=== PATIENT | female | born 1960 | race Caucasian/White ===

== ENCOUNTER 2019-12-20 17:05 | Emergency (ER) | payer OTHER, SELFPAY ==
[2019-12-20 17:13] VITALS: PULSE 77; RESP 18; TEMP 36.9; O2SAT 95; BMI 30.2
--- NOTE | 2019-12-20 17:20 | W.ED.GENADLT ---
HPI - General Adult General: Chief complaint: Recheck/Abnormal Lab/Rx Stated complaint: covid Time Seen by Provider: 12/20/19 17:17 Source: patient Mode of arrival: ambulatory Limitations: no limitations History of Present Illness: HPI narrative: 59-year-old female who states she wants to be tested for COVID. She states she has had no symptoms better recently tested positive and is an ICU at [facility]. She states she needs a negative bed to be able to go back to her daily living. She denies any fever and denies any shortness of breath. She has no medical complaints at this time. Associated symptoms: Deny chest pain, dyspnea, headache(s), nausea, rash or vomiting Review of Systems Const: Denies: fever(s), chills, body aches or change in appetite Eyes: Denies: blurry vision or eye discomfort ENMT: Denies: throat pain or dental pain Card: Denies: chest pain Resp: Denies: dyspnea GI: Denies: abdominal pain, nausea, vomiting or diarrhea : Denies: dysuria Musc: Denies: neck pain or back pain Skin/Breast: Denies: rash Neuro: Denies: headache(s) Psych: Denies: depression Masood/Lymph: Denies: easy bruising All/Imm: Denies: urticaria Physical Exam Const: COMMON NORMALS: no acute distress, patient oriented x3 and healthy appearing HENMT: COMMON NORMALS: normocephalic and atraumatic HEAD & SCALP: normocephalic and atraumatic Eye: COMMON NORMALS: Equal, round and reactive pupils present and EOMs intact bilaterally PUPIL: Yes Equal, round and reactive pupils present Neck/C-Spine: COMMON NORMALS: full ROM and supple Chest: COMMONS NORMALS: normal inspection of the chest and normal palpation of entire chest wall Resp: COMMON NORMALS: normal respiratory effort, No retractions, No use of accessory muscles and clear to auscultation bilaterally AUSCULTATION: clear to auscultation bilaterally Cardio: COMMON NORMALS: regular rate, regular rhythm and No murmurs present (Cardio) RATE: regular rate RHYTHM: regular rhythm GI: COMMON NORMALS: Normal to inspection, nondistended, normoactive bowel sounds present, Soft to palpation, non-tender and no masses PALPATION: Yes Soft to palpation Extremity: COMMON NORMALS: normal to inspection and full ROM Neuro: COMMON NORMALS: patient oriented x3, moves all extremities and no focal motor deficits Psych: COMMON NORMALS: mental status grossly normal, Normal thought process present and cooperative THOUGHT PROCESS: Normal thought process present Skin: COMMON NORMALS: no rashes or lesions noted and no wounds GENERAL SKIN EXAM: no rashes or lesions noted Course Vital Signs: Vital signs: Vital Signs Temperature 98.5 F 12/20/19 17:13 Pulse Rate 77 12/20/19 17:13 Respiratory Rate 18 12/20/19 17:13 Pulse Oximetry 95 12/20/19 17:13 MDM - General Adult MDM Narrative: Medical decision making narrative: Patient presents here with COVID-19. Patient is well-appearing here and is not on any oxygen and has no fever or shortness of breath. Patient is stable for discharge. I informed her she needs to self quarantine for 2 weeks and is to return if she has any increasing shortness of breath. Patient understands and agrees to plan. Lab Data: Labs: Lab Results 12/20/19 Range/Units 17:40 SARS-CoV-2 Ag (Rap id) Positive H (Negative) Discharge Plan Discharge Patient Disposition: Home Clinical Impression: COVID-19 Condition: Stable Prescriptions: No Action Tylenol 325 mg Tablet 650 mg PO QID PRN (Reason: Pain) RF: 0 Discharge Orders: Discharge Order (Routine); Ordered 12/20/19 Ordered By: Luis M Echavarria Discharge Diet: Advance as tolerated Discharge Activity: Resume usual activity Patient Instructions: Viral Syndrome (ED) Coding Level of Care Code ED Plant Maintenance Mechanic for Wojciech Fwd Exam Comprehensive
[2019-12-20 18:18] LABS: SARS Covid-2 Antigen Positive (Negative)
[2019-12-20 18:36] VITALS: PULSE 70; RESP 18; O2SAT 97
== END 2019-12-20 18:38 | disposition home or self-care (01) ==
PROVIDERS: Emergency Provider Emergency Medicine
DX: U07.1 COVID-19 (principal)
CPT/HCPCS: 12345; 87426; 99281; 99282

== ENCOUNTER 2023-05-11 12:36 | Emergency (ER) | payer OTHER, MEDICAID, SELFPAY ==
[2023-05-11 12:43] VITALS: BP 164/66; PULSE 76; TEMP 36.9; O2SAT 94; BMI 28.3
[2023-05-11 13:18] VITALS: BP 142/75; PULSE 71; O2SAT 97
--- NOTE | 2023-05-11 13:42 | CTR_ITS ---
PROCEDURE INFORMATION: Exam: CT Abdomen And Pelvis With Contrast Exam date and time: 05/11/2023 4:20 PM Age: 63 years old Clinical indication: Patient HX: Back pain, blood in urine; Additional info: Jaundice TECHNIQUE: Imaging protocol: Computed tomography of the abdomen and pelvis with contrast. Radiation optimization: All CT scans at this facility use at least one of these dose optimization techniques: automated exposure control; mA and/or kV adjustment per patient size (includes targeted exams where dose is matched to clinical indication); or iterative reconstruction. Contrast material: OMNI 350; Contrast volume: 100 ml; Contrast route: INTRAVENOUS (IV); REPORTING DATA: Count of CT and Cardiac NM exams in prior 12 months: This patient has received 0 known CTs and 0 known cardiac nuclear medicine studies in the 12 months prior to the current study. COMPARISON: No relevant prior studies available. RADIATION DOSE METRICS: Total DLP (mGy-cm): 498.93 FINDINGS: Liver: No mass. Gallbladder and bile ducts: Intra and extrahepatic biliary ductal dilatation. Wall thickening/enhancement of the extrahepatic biliary ducts. Common duct measures up to 10 mm. No visible common duct stone. Cholelithiasis with gallbladder wall thickening. Pancreas: No mass or ductal dilation. Spleen: No splenomegaly. Adrenal glands: No mass. Kidneys and ureters: No stones or hydronephrosis. Stomach and bowel: No obstruction. Appendix: Normal appendix. Intraperitoneal space: No free air. No significant fluid collection. Vasculature: No abdominal aortic aneurysm. Lymph nodes: No enlarged lymph nodes. Urinary bladder: Incompletely distended. Reproductive: Unremarkable as visualized. Bones/joints: Degenerative changes without acute findings. Severe bilateral hip degenerative changes. Soft tissues: Unremarkable. CT/CT abdomen pelvis w con* [id number] IMPRESSION: Cholelithiasis with dilated intra and extrahepatic biliary ducts and inflammation of the biliary system. No choledocholithiasis or pancreatic mass identified by CT. Acute cholecystitis and/or cholangitis are primary differential considerations. MRCP recommended for further evaluation.
--- NOTE | 2023-05-11 13:46 | ED_ITS ---
HPI - Female Genitourinary 2 General: Chief complaint: Urogenital-Female Stated complaint: back pain, blood urine Time Seen by Provider: 05/11/23 13:31 Source: patient Mode of arrival: ambulatory Limitations: no limitations History of Present Illness: Patient presents here from her clinic she went to the clinic today having some slight back pain along with noticing change in color of her urine. She is noticed to be quite jaundiced there and sent here. She does have scleral icterus and jaundice who states that some mild back and abdominal pain for the last 2 days denies any vomiting she had some painful urination no history of any liver issues she states she is not a drinker. Associated symptoms: Reports abdominal pain; Deny headache(s) or nausea Review of Systems 2 Const: Denies: fever(s), chills, body aches or change in appetite ENMT: Denies: throat pain or dental pain Card: Denies: chest pain Resp: Denies: dyspnea GI: Reports: abdominal pain; Denies: nausea, vomiting or diarrhea Musc: Denies: neck pain or back pain Skin/Breast: Reports: changes in skin color and jaundice; Denies: rash Neuro: Denies: headache(s) Physical Exam 2 Const: COMMON NORMALS: no acute distress, patient oriented x3 and healthy appearing HENMT: COMMON NORMALS: normocephalic and atraumatic HEAD & SCALP: n ormocephalic and atraumatic Eye: OTHER: scleral icterus Neck/C-Spine: COMMON NORMALS: full ROM and supple Chest: COMMONS NORMALS: normal inspection of the chest Resp: COMMON NORMALS: normal respiratory effort Cardio: COMMON NORMALS: regular rate, regular rhythm and No murmurs present (Cardio) RATE: regular rate RHYTHM: regular rhythm Extremity: COMMON NORMALS: normal to inspection and full ROM Neuro: COMMON NORMALS: patient oriented x3, moves all extremities and no focal motor deficits Psych: COMMON NORMALS: mental status grossly normal, Normal thought process present and cooperative THOUGHT PROCESS: Normal thought process present Skin: COMMON NORMALS: no rashes or lesions noted and no wounds NARRATIVE SKIN EXAM: jaundiced GENERAL SKIN EXAM: no rashes or lesions noted Course 2 Vital Signs: Vital signs: Vital Signs Temperature 98.5 F 05/11/23 12:43 Pulse Rate 69 05/11/23 18:33 Respiratory Rate 18 05/11/23 19:05 Blood Pressure 162/73 05/11/23 18:33 Pulse Oximetry 94 05/11/23 18:33 Oxygen Delivery Me thod Room Air 05/11/23 12:43 MDM - Female Medical Decision Making Patient presents here with abdominal pain along with an elevated bilirubin CT's scan shows biliary ductal dilatation with likely cholecystitis and cholangitis she is not septic here did give her IV antibiotics I spoke to physician at [facility] and will transfer there for higher level of care for GI and ERCP. Lab Data I reviewed the patient's lab results. 05/11/23 13:45 05/11/23 13:45 Radiology Impressions Abdomen/Pelvis CT 05/11/23 13:42 IMPRESSION: Cholelithiasis with dilated intra and extrahepatic biliary ducts and inflammation of the biliary system. No choledocholithiasis or pancreatic mass identified by CT. Acute cholecystitis and/or cholangitis are primary differential considerations. MRCP recommended for further evaluation. Laboratory Results WBC 7.68 10^3/uL (3.29-11.43) 05/11/23 13:45 RBC 5.22 10^6/uL (3.85-5.65) 05/11/23 13:45 Hgb 14.90 g/dL (11.27-16.99) 05/11/23 13:45 Hct 45.1 % (36-47) 05/11/23 13:45 MCV 86.4 fl (85-98) 05/11/23 13:45 MCH 28.5 pg (27-33) 05/11/23 13:45 MCHC 33.0 g/dL (30-55) 05/11/23 13:45 RDW 13.0 % (12.1-15.1) 05/11/23 13:45 Plt Count 327 10^3/cmm (157-399) 05/11/23 13:45 MPV 10.9 fL (7.4-10.4) H 05/11/23 13:45 Neut % (Auto) 74.7 % 05/11/23 13:45 Lymph % (Auto) 15.4 % 05/11/23 13:45 [place] % (Auto) 7.2 % 05/11/23 13:45 Eos % (Auto) 1.4 % 05/11/23 13:45 Baso % (Auto) 0.9 % 05/11/23 13:45 Neut # (Auto) 5.74 10^3/uL (1.8-7.7) 05/11/23 13:45 Lymph # (Auto) 1.2 10^3/uL (0.8-4.8) 05/11/23 13:45 [place] # (Auto) 0.6 10^3/uL (0.2-0.9) 05/11/23 13:45 Eos # (Auto) 0.1 10^3/uL (0.0-0.8) 05/11/23 13:45 Baso # (Auto) 0.1 10^3/uL (0.0-0.1) 05/11/23 13:45 Nucleated RBC % (auto) 0 % 05/11/23 13:45 Nucleated RBCs # 0.0 /100WBC 05/11/23 13:45 PT 12.90 SECONDS (12.1-14.9) 05/11/23 13:45 INR 0.94 (0.8-1.2) 05/11/23 13:45 Sodium 140 mmol/L (136-145) 05/11/23 13:45 Potassium 3.9 mmol/L (3.5-5.1) 05/11/23 13:45 Chloride 103 mmol/L (98-107) 05/11/23 13:45 Carbon Dioxide 22 mmol/L (22-29) 05/11/23 13:45 Anion Gap 18.9 (5-19) 05/11/23 13:45 BUN 11 mg/dL (8-23) 05/11/23 13:45 Creatinine 0.6 mg/dL (0.5-0.9) 05/11/23 13:45 GFR Calculation 100.6 mL/min (90-130) 05/11/23 13:45 Glucose 103 mg/dL (65-115) 05/11/23 13:45 Calculated Osmolality 290 mOsm/kg (285-295) 05/11/23 13:45 Calcium 9.2 mg/dL (8.5-10.5) 05/11/23 13:45 Total Bilirubin 8.5 mg/dL (0.15-1.2) H* 05/11/23 13:45 AST 204 U/L (0-32) H 05/11/23 13:45 ALT 504 U/L (0-33) H 05/11/23 13:45 Alkaline Phosphatase 379 U/L (35-105) H 05/11/23 13:45 Total Protein 7.3 g/dL (6.6-8.7) 05/11/23 13:45 Albumin 3.9 g/dL (3.5-5.2) 05/11/23 13:45 Globulin 3.4 g/dL (1.3-4.6) 05/11/23 13:45 Lipase 33 U/L (13-60) 05/11/23 13:45 Urine Color Nancy (Yellow) 05/11/23 15:03 Urine Appearance Hazy (CLEAR) A 05/11/23 15:03 Urine pH 5 (5-7) 05/11/23 15:03 Ur Specific Eros 1.030 (1.005-1.030) 05/11/23 15:03 Urine Protein 3+ (Negative) H 05/11/23 15:03 Urine Glucose (UA) Norm (Normal) 05/11/23 15:03 Urine Ketones 1+ (Negative) H 05/11/23 15:03 Urine Blood 2+ (Negative) H 05/11/23 15:03 Urine Nitrate Negative (Negative) 05/11/23 15:03 Urine Bilirubin 3+ (Negative) H 05/11/23 15:03 Urine Urobilinogen 4+ mg/dL (Negative) H 05/11/23 15:03 Ur Leukocyte Esterase Trace (Negative) H 05/11/23 15:03 Urine RBC 0-4 /hpf (0-2) H 05/11/23 15:03 Urine WBC 40-55 /hpf (0-5) H 05/11/23 15:03 Ur Squamous Epith Cells 5-10 /hpf (0-5) H 05/11/23 15:03 Amorphous Sediment Not Reportable 05/11/23 15:03 Urine Bacteria 2+ /hpf (NONE) H 05/11/23 15:03 All radiology interpretation(s) finalized by discharge Discharge Plan Discharge Patient Disposition: Xfer Short-Term Hosp Clinical Impression: Choledocholithiasis Condition: Stable Prescriptions: No Action acetaminophen [Tylenol] 325 mg Tablet 650 mg PO QID PRN (Reason: Pain) Referrals: Vanda Fernandes MD [Primary Care Provider] - Coding Level of Care Code ED Alterations Tailor for Chg Shannon
[2023-05-11] MEDS: sodium chloride 0.9% 1,000 ML 999 ML IV (14:06)
[2023-05-11 14:12] LABS: Basophils # 0.1 10^3/uL (0.0-0.1); Basophils % 0.9 %; Eosinophils # 0.1 10^3/uL (0.0-0.8); Eosinophils % 1.4 %; Hematocrit 45.1 % (36-47); Lymphocytes # 1.2 10^3/uL (0.8-4.8); Lymphocytes % 15.4 %; Mean Corpuscular Hemoglobin 28.5 pg (27-33); Mean Corpuscular Volume 86.4 fl (85-98); Mean Platelet Volume 10.9 fL (7.4-10.4); Monocytes # 0.6 10^3/uL (0.2-0.9); Monocytes % 7.2 %; Neutrophils # 5.74 10^3/uL (1.8-7.7); Neutrophils % 74.7 %; Nucleated Red Blood Cells % 0 %; Platelet Count 327 10^3/cmm (157-399); Red Blood Count 5.22 10^6/uL (3.85-5.65); White Blood Count 7.68 10^3/uL (3.29-11.43)
[2023-05-11 14:35] LABS: Alanine Aminotransferase 504 U/L (0-33); Albumin Level 3.9 g/dL (3.5-5.2); Alkaline Phosphatase 379 U/L (35-105); Anion Gap 18.9 (5-19); Aspartate Amino Transferase 204 U/L (0-32); Blood Urea Nitrogen 11 mg/dL (8-23); Calcium 9.2 mg/dL (8.5-10.5); Carbon Dioxide 22 mmol/L (22-29); Chloride 103 mmol/L (98-107); Globulin 3.4 g/dL (1.3-4.6); Glomerular Filtration Rate 100.6 mL/min (90-130); Glucose 103 mg/dL (65-115); Lipase 33 U/L (13-60); Osmolality Calculated 290 mOsm/kg (285-295); Potassium 3.9 mmol/L (3.5-5.1); Sodium 140 mmol/L (136-145); Total Protein 7.3 g/dL (6.6-8.7)
[2023-05-11 14:38] LABS: INR 0.94 (0.8-1.2)
[2023-05-11 14:45] LABS: Total Bilirubin 8.5 mg/dL (0.15-1.2)
[2023-05-11 15:17] LABS: Urine Color Amber (Yellow)
[2023-05-11 15:18] LABS: Add Urine Microscopic? YES; Bilirubin Urine 3+ (Negative); Blood Urine 2+ (Negative); Glucose Urine UA Norm (Normal); Ketones Urine 1+ (Negative); Nitrate Urine Negative (Negative); Protein Urine 3+ (Negative); Urine Appearance Hazy (CLEAR); Urobilinogen Urine 4+ mg/dL (Negative); pH Urine 5 (5-7)
[2023-05-11 15:35] LABS: Bacteria Urine 2+ /hpf; Leukocyte Esterase Urine Trace (Negative); RBC Urine 0-4 /hpf (0-2); WBC Urine 40-55 /hpf (0-5)
[2023-05-11 15:36] LABS: Add Urine Culture? Yes
[2023-05-11] MEDS: iohexol 350 mg/mL 500 mL Btl (per mL) IV (16:29)
[2023-05-11] MEDS: piperacillin-tazobactam 3.375 GM in sodium chloride 0.9% (plus) 50 ML IV (17:39)
[2023-05-11 18:33] VITALS: BP 162/73; PULSE 69; O2SAT 94
[2023-05-11 19:05] VITALS: RESP 18
[2023-05-11] MEDS: HYDROmorphone 1 mg/mL INJ 1 mL IVP (19:05)
[2023-05-11 20:00] VITALS: RESP 18; O2SAT 90
[2023-05-11 20:53] VITALS: BP 157/76; PULSE 81; RESP 18; O2SAT 97
== END 2023-05-11 20:55 | disposition short-term general hospital (02) ==
PROVIDERS: Emergency Provider Emergency Medicine; PCP Family Medicine
DX: K80.70 Calculus of gallbladder and bile duct without cholecystitis without obstruction (principal)
CPT/HCPCS: 74177; 80053; 81001; 83690; 85025; 85610; 87086; 96365; 96375; 99285; J1170; J2543; J7030; Q9967

== ENCOUNTER → 2024-02-13 14:34 | Outpatient (BNVA) | payer MEDICAID, OTHER, SELFPAY | DX: K21.9 Gastro-esophageal reflux disease without esophagitis (principal) | CPT/HCPCS: 80053; 80061; 84439; 84443; 85025 ==

== ENCOUNTER 2024-02-14 13:12 | Outpatient (CLI) | payer MEDICAID, OTHER, SELFPAY ==
--- NOTE | 2024-02-14 13:17 | XR_ITS ---
WS: [email or web address] Exam: XR knee RT 3V* [id number] Date/Time of Exam: 02/14/2024 1:19 PM Reason For Exam: joint pain No fracture or dislocation. The joint compartments are preserved. No joint effusion. Mild spurring of the tibial spines. XR/XR knee RT 3V* [id number] IMPRESSION: 1. Minimal degenerative change. No fracture or joint effusion. Kellgren-Lawrenc e grade 1.
--- NOTE | 2024-02-14 13:17 | XR_ITS ---
WS: [email or web address] Exam: XR hip RT 2-3V wo/w pel* [id number] Date/Time of Exam: 02/14/2024 1:19 PM Reason For Exam: joint pain No fracture or dislocation. There is end-stage osteoarthritis of the RIGHT hip with qzmc-ax-htle miguel ángel culation. Subcortical cyst formation in the acetabulum and the femoral head. Normal soft tissues. IMPRESSION1. End-stage osteoarthritis of the RIGHT hip with [id number].
--- NOTE | 2024-02-14 13:17 | XR_ITS ---
WS: [email or web address] Exam: XR hip LT 2-3V wo/w pel* [id number] Date/Time of Exam: 02/14/2024 1:19 PM Reason For Exam: bilateral pain No fracture or dislocation. End-stage osteoarthritis with rdhj-el-[id number]. Extensive subcortical cyst fo rmation in the acetabulum and the femoral head. Normal soft tissues. XR/XR hip LT 2-3V wo/w pel* [id number] IMPRESSION: 1. End-stage osteoarthritis with dhvo-mn-txde.
--- NOTE | 2024-02-14 13:17 | XR_ITS ---
WS: [email or web address] Exam: XR knee LT 3V* [id number] Date/Time of Exam: 02/14/2024 1:19 PM Reason For Exam: joint pain No fracture or dislocation. The joints are relatively well-maintained. No joint effusion. Normal soft tissues. Mild spurring of the tibial spines. XR/XR knee LT 3V* [id number] IMPRESSION: 1. Minimal DJD. Kellgren-Konrad grade 1.
== END 2024-02-14 13:13 | disposition home or self-care (01) ==
LOC: LAB 13:14
DX: M16.12 Unilateral primary osteoarthritis, left hip (principal); M71.352 Other bursal cyst, left hip; M16.11 Unilateral primary osteoarthritis, right hip; M71.351 Other bursal cyst, right hip
CPT/HCPCS: 73502; 73562

== ENCOUNTER → 2024-02-22 12:27 | Outpatient (BNVA) | payer OTHER, MEDICAID, SELFPAY | PROVIDERS: Visit Provider Nurse Practitioner | DX: M16.0 Bilateral primary osteoarthritis of hip (principal) | CPT/HCPCS: 73522; 99204 ==

== ENCOUNTER 2024-03-05 09:40 | Outpatient (RCR) | payer MEDICARE, OTHER, MEDICAID, SELFPAY | END 2024-03-14 23:59 | disposition home or self-care (01) | LOC: SPT 09:40 | PROVIDERS: Visit Provider Nurse Practitioner | DX: M25.551 Pain in right hip (principal); M25.552 Pain in left hip | CPT/HCPCS: 97110; 97161 ==

== ENCOUNTER 2024-03-15 06:00 | Outpatient (RCR) | payer MEDICARE, OTHER, MEDICAID, SELFPAY | END 2024-04-13 23:59 | disposition home or self-care (01) | LOC: SPT 06:00 | PROVIDERS: Visit Provider Nurse Practitioner | DX: M25.551 Pain in right hip (principal); M25.552 Pain in left hip | CPT/HCPCS: 97110 ==

== ENCOUNTER 2024-03-19 09:30 | Outpatient (CLI) | payer MEDICARE, OTHER, MEDICAID, SELFPAY ==
--- NOTE | 2024-03-19 09:30 | MR_ITS ---
WS: [id number] MRI LEFT HIP WITHOUT CONTRAST. COMPARISON: Radiograph 02/22/2024 Multiplanar, multisequence imaging is performed without contrast. Severe degenerative changes noted at the LEFT hip joint. There is obliteration of the hip joint with bone upon bone and remodeling of the femoral head. Numerous subchondral cystic changes are noted on b oth sides of the joint space. Synovial thickening and a small joint effusion are present. Labrum is i ndistinct. Study was terminated early due to patient's severe pain. Additional similar, but not as advanced changes, at the RIGHT femoral head and acetabulum. Edema with RIGHT hip and small joint effusion. There is edema and subchondral cystic changes developing on both sides of the joint. There is bone upon bone involving the femoral head upon the lateral acetabulum. Slight lateral subluxation of the femoral head. Urinary bladder is negative. Uterus is present in the midline. Heterogeneity within the uterus may be due to fibroids. MR/MR hip LT wo con* [id number] IMPRESSION: 1. Severe osteoarthritis at the LEFT hip joint. Obliteration of the joint spac e with remodeling of the femoral head and subchondral cystic changes. 2. Mild synovial thickening at the LEFT hip. 3. Similar but not as advanced osteoarthritic changes involving the RIGHT hip joint.
== END 2024-03-19 09:33 | disposition home or self-care (01) ==
PROVIDERS: Visit Provider Nurse Practitioner
DX: M16.0 Bilateral primary osteoarthritis of hip (principal)
CPT/HCPCS: 73721

== ENCOUNTER → 2024-04-01 10:00 | Outpatient (BNVA) | payer MEDICARE, OTHER, MEDICAID, SELFPAY | PROVIDERS: Visit Provider Nurse Practitioner | DX: M16.0 Bilateral primary osteoarthritis of hip (principal) | CPT/HCPCS: 99213 ==

== ENCOUNTER 2024-04-14 06:00 | Outpatient (RCR) | payer MEDICARE, OTHER, SELFPAY | END 2024-05-08 23:59 | disposition home or self-care (01) | LOC: SPT 06:00 | PROVIDERS: Visit Provider Nurse Practitioner | DX: M25.551 Pain in right hip (principal); M25.552 Pain in left hip | CPT/HCPCS: 97110 ==

== ENCOUNTER → 2024-05-20 10:52 | Outpatient (BNVA) | payer OTHER, SELFPAY | DX: I10 Essential (primary) hypertension (principal) | CPT/HCPCS: 80053 ==

== ENCOUNTER → 2024-07-01 14:14 | Outpatient (BNVA) | payer MEDICARE, MEDICAID, SELFPAY | PROVIDERS: Visit Provider Nurse Practitioner | DX: M16.0 Bilateral primary osteoarthritis of hip (principal); M85.60 Other cyst of bone, unspecified site; M54.16 Radiculopathy, lumbar region | CPT/HCPCS: 73502; 99214 ==

== ENCOUNTER 2024-07-16 11:06 | Outpatient (CLI) | payer MEDICARE, MEDICAID, SELFPAY ==
[2024-07-16 11:29] LABS: Basophils # 0.1 10^3/uL (0.0-0.1); Basophils % 0.8 %; Eosinophils # 0.1 10^3/uL (0.0-0.8); Eosinophils % 1.4 %; Hematocrit 43.9 % (36-47); Lymphocytes # 1.4 10^3/uL (0.8-4.8); Lymphocytes % 18.8 %; Mean Corpuscular HGB Conc 33.5 g/dL (30-55); Mean Corpuscular Hemoglobin 28.4 pg (27-33); Mean Corpuscular Volume 84.9 fl (85-98); Mean Platelet Volume 9.5 fL (7.4-10.4); Monocytes # 0.5 10^3/uL (0.2-0.9); Monocytes % 6.7 %; Neutrophils # 5.15 10^3/uL (1.8-7.7); Neutrophils % 71.7 %; Nucleated Red Blood Cells % 0 %; Platelet Count 397 10^3/cmm (157-399); Red Blood Count 5.17 10^6/uL (3.85-5.65); Red Cell Distribution Width 12.3 % (12.1-15.1); White Blood Count 7.18 10^3/uL (3.29-11.43)
[2024-07-16 11:31] LABS: Bilirubin Urine Negative (Negative); Blood Urine Trace (Negative); Glucose Urine UA Negative (Normal); Ketones Urine Trace (Negative); Leukocyte Esterase Urine 1+ (Negative); Nitrate Urine Negative (Negative); Protein Urine Trace (Negative); Specific Gravity, Urine 1.026 (1.005-1.030); Urine Appearance Clear (CLEAR); Urine Color Yellow (Yellow)
[2024-07-16 11:38] LABS: Add Urine Microscopic? YES; Bacteria Urine TRACE /hpf; Hyaline Casts Urine 0-4 /lpf; UA Manual Slide Review YES; UA Slide Review UA Slide Review Perf; WBC Urine 0-4 /hpf (0-5)
[2024-07-16 11:48] LABS: Alanine Aminotransferase 14 U/L (0-33); Alkaline Phosphatase 148 U/L (35-105); Aspartate Amino Transferase 15 U/L (0-32); Blood Urea Nitrogen 18 mg/dL (8-23); Calcium 8.7 mg/dL (8.5-10.5); Carbon Dioxide 25 mmol/L (22-29); Chloride 105 mmol/L (98-107); Globulin 2.8 g/dL (1.3-4.6); Glomerular Filtration Rate 100.3 mL/min (90-130); Glucose 106 mg/dL (65-115); Osmolality Calculated 290 mOsm/kg (285-295); Sodium 139 mmol/L (136-145); Total Bilirubin 0.9 mg/dL (0.15-1.2); Total Protein 6.8 g/dL (6.6-8.7)
== END 2024-07-16 11:07 | disposition home or self-care (01) ==
PROVIDERS: Visit Provider Nurse Practitioner
DX: M16.0 Bilateral primary osteoarthritis of hip (principal)
CPT/HCPCS: 36415; 80053; 81001; 85025

== ENCOUNTER → 2024-07-19 10:51 | Outpatient (BNVA) | payer MEDICARE, MEDICAID, SELFPAY | PROVIDERS: Visit Provider Family Medicine | DX: Z01.818 Encounter for other preprocedural examination (principal) | CPT/HCPCS: 81003; 93005 ==

== ENCOUNTER 2024-07-30 10:29 | Day surgery (SDC) | payer MEDICARE, SELFPAY ==
[2024-07-30 10:34] VITALS: BP 177/78; PULSE 69; RESP 16; TEMP 37.3; O2SAT 97; BMI 31.8
[2024-07-30] MEDS: sodium chloride 0.9% 1,000 ML 30 ML IV (10:48)
[2024-07-30] MEDS: acetaminophen 1,000 MG/100 ML PIGGYBACK 400 MG IV (10:52)
[2024-07-30] MEDS: gabapentin 300 mg Capsule PO (10:54)
[2024-07-30] MEDS: CELEcoxib 200 mg Capsule 400 MG PO (10:54)
--- NOTE | 2024-07-30 12:53 | SUR.PREOP ---
1230 Dr. Lester here and examined patient with c/o of left sided tooth pain, will cancel sx due to this tooth abcess. Nancy Ramsey,RN ELECTRIC VEHICLE ELECTRICIAN here to examine patient with Daughter Perry in room and when tooth examined and pressure placed on tooth, a large amt. of pus noted. Agreed per pt and daughter that pt needs to see a dentist alba and prescription sent to pharmacy for an antibiotic per Nancy. IV d/c ed and instructions given for f/u appt and verbalized understanding to take Diclofenac twice a day for pain.
== END 2024-07-30 12:50 | disposition home or self-care (01) ==
PROVIDERS: Visit Provider Specialist
PROC: (CPT 27130; principal; 2024-07-30 12:25)
DX: M16.0 Bilateral primary osteoarthritis of hip (principal); Z53.09 Procedure and treatment not carried out because of other contraindication; I10 Essential (primary) hypertension; K21.9 Gastro-esophageal reflux disease without esophagitis; Z79.899 Other long term (current) drug therapy; M85.60 Other cyst of bone, unspecified site; M54.16 Radiculopathy, lumbar region
CPT/HCPCS: 27130; J0131; J7030; J9999

== ENCOUNTER → 2024-08-19 08:27 | Outpatient (BNVA) | payer MEDICARE, SELFPAY | PROVIDERS: Visit Provider Nurse Practitioner | DX: M16.0 Bilateral primary osteoarthritis of hip (principal); M54.16 Radiculopathy, lumbar region; M85.60 Other cyst of bone, unspecified site | CPT/HCPCS: 99213 ==

== ENCOUNTER → 2024-10-11 10:05 | Outpatient (BNVA) | payer MEDICARE, MEDICAID, SELFPAY | PROVIDERS: Visit Provider Nurse Practitioner | DX: Z01.818 Encounter for other preprocedural examination (principal); M16.12 Unilateral primary osteoarthritis, left hip; M85.60 Other cyst of bone, unspecified site; M54.16 Radiculopathy, lumbar region | CPT/HCPCS: 36415; 80053; 81001; 85025; 99214 ==

== ENCOUNTER 2024-10-21 15:22 | Observation (INO) | payer MEDICARE, MEDICAID, SELFPAY ==
[2024-10-21] VITALS (20 sets, daily range): BP systolic 80–169; BP diastolic 46–94; PULSE 51–77; RESP 15–19; TEMP 36.2–36.8; O2SAT 92–99; BMI 33.3
--- NOTE | 2024-10-21 10:53 | W.PM.OPSUD ---
Surgery/Procedure H&P Update DATE OF PROCEDURE: October 21, 2024 DATE H&P PERFORMED: 10/11/24 H&P UPDATE INFORMATION: I have reviewed H&P completed within last 30 days, I have examined patient prior to procedure, No changes to prior documentation, H&P is in [facility] EMR on date indicated and Risks and benefits of the procedure reviewed PLANNED PROCEDURE: Operation Date: 10/21/24 13:00 Proposed Procedures p LEFT Total Hip Arthroplasty(Left) - Hayley Lester MD Related Problem List Diagnoses (1) Osteoarthritis of left hip: Qualifiers: Osteoarthritis type: primary Qualified Code(s): M16.12 - Unilateral primary osteoarthritis, left hip
--- NOTE | 2024-10-21 10:56 | ANES.PREANE2 ---
Pre-Anesthetic Assessment Height/Weight: Height 1.6 m Temp Pulse Resp BP Pulse Ox O2 Del Method 97.5 F L 60 18 150/83 92 Room Air 10/21/24 10:42 10/21/24 10:42 10/21/24 10:42 10/21/24 10:42 10/21/24 10:42 10/21/24 10:42 Operation Date: 10/21/24 13:00 Proposed Procedures p LEFT Total Hip Arthroplasty(Left) - Hayley Lester MD Familial anesthetic complications: None Was Beta Cora taken within 24 hours: N/A Was Clonidine taken within 24 hours: N/A Last intake: Intake Last Liquid Date 10/20/24 Last Liquid Time 23:00 Last Solid Date 10/20/24 Last Solid Time 19:00 Social No alcohol and No tobacco Exam alert, oriented x 3, clear to auscultation bilaterally and regular rate & rhythm Airway Mallampati: Class II Dentition: chipped and other (multiple missing) CV/HEM Hypertension GI Gastroesophageal Reflux Disease Anesthetic Plan ASA status: 3 Anesthesia: Regional (specify below) (spinal) Risk of > 500 ml blood loss (7ml/kg in children): No Medications/Allergies Home Medications ?Medication ?Instructions ?Recorded ?Confirmed ?Last Taken ?Type polyethylene glycol 3350 17 17 g PO DAILY PRN constipation 02/13/24 10/18/24 07/29/24 Rx gram/dose oral powder #510 grams docusate sodium 50 mg capsule 50 mg PO DAILY #30 caps 05/20/24 10/18/24 07/29/24 Rx Blood pressure cuff #1 ea 06/10/24 10/10/24 Unknown Rx diclofenac sodium 75 mg 75 mg PO BID PRN pain #180 tabs 07/01/24 10/18/24 07/25/24 Rx tablet,delayed release standard walker #1 ea 07/01/24 10/11/24 Unknown Rx acetaminophen 500 mg tablet 1,000 mg (2 x 500 mg) PO Q6H PRN 07/19/24 10/18/24 10/18/24 Rx pain #30 tabs chlorhexidine gluconate 0.12 % 15 ml mucous membrane DAILY #118 mL 07/30/24 10/18/24 Unknown Rx mouthwash cetirizine 10 mg tablet 10 mg PO DAILY #30 tabs 08/13/24 10/18/2410/15/25 Rx home BP monitoring device #1 ea 09/03/24 10/10/24 Unknown Rx hydroxyzine HCl 25 mg tablet 25 mg PO BID PRN anxiety #60 tabs 09/03/24 10/18/24 10/20/24 Rx omeprazole 20 mg capsule,delayed 20 mg PO QAM #90 caps 09/03/24 10/18/24 10/15/24 Rx release fluoxetine 40 mg capsule 40 mg PO DAILY #90 caps 10/03/24 10/18/24 10/15/24 Rx pantoprazole 20 mg tablet,delayed 20 mg PO DAILY #30 tabs 10/03/24 10/18/24 10/15/24 Rx release lisinopril 30 mg tablet 30 mg PO DAILY #30 tabs 10/10/24 10/18/24 10/20/24 Rx nitrofurantoin 100 mg PO BID 7 days #14 caps 10/14/24 10/18/24 10/20/24 Rx monohydrate/macrocrystals 100 mg capsule (Macrobid) Allergies Allergy/AdvReac Type Severity Reaction Status Date / Time No Known Allergies Allergy Verified 10/11/24 09:09 [facility] Anesthesia Medical History (Updated 10/14/24 @ 08:21 by RUBIN Iniguez) Osteoarthritis of left hip Subchondral bone cyst Hypertension Degenerative joint disease Osteoarthritis, hip, bilateral Encounter to establish care Anxiety Joint pain Seasonal allergies GERD (gastroesophageal reflux disease) Family History Father No problems noted. Mother No problems noted. Social History Smoking and tobacco/nicotine status: former use of tobacco/nicotine Alcohol intake: never Substance/Drug Use: never
[2024-10-21 11:01] LABS: Bilirubin Urine Negative (Negative); Blood Urine 1+ (Negative); Glucose Urine UA Negative (Normal); Ketones Urine Negative (Negative); Leukocyte Esterase Urine 3+ (Negative); Nitrate Urine Negative (Negative); Protein Urine Negative (Negative); Specific Gravity, Urine 1.017 (1.005-1.030); Urine Appearance Clear (CLEAR); Urine Color Yellow (Yellow); Urobilinogen Urine 0.2 mg/dL (Negative); pH Urine 5.5 (5-7)
[2024-10-21 11:06] LABS: Add Urine Microscopic? YES; Bacteria Urine Trace /hpf; Hyaline Casts Urine 0-4 /lpf; WBC Urine 21-50 /hpf (0-5)
[2024-10-21 11:07] LABS: Add Urine Culture? Yes
[2024-10-21 11:52] LABS: Bilirubin Urine Negative (Negative); Blood Urine Trace (Negative); Glucose Urine UA Negative (Normal); Ketones Urine Negative (Negative); Leukocyte Esterase Urine Negative (Negative); Nitrate Urine Negative (Negative); Protein Urine Negative (Negative); Specific Gravity, Urine 1.017 (1.005-1.030); Urine Appearance Clear (CLEAR); Urine Color Yellow (Yellow); pH Urine 6.5 (5-7)
[2024-10-21 11:54] LABS: Add Urine Microscopic? YES; Bacteria Urine None Seen /hpf; Squamous Epithelial Cell Urine 0-5 /hpf (0-5); WBC Urine 0-5 /hpf (0-5)
[2024-10-21 11:55] LABS: Add Urine Culture? No
[2024-10-21] MEDS: acetaminophen 1,000 MG/100 ML PIGGYBACK 400 MG IV ×2 (12:11→20:05)
[2024-10-21] MEDS: gabapentin 300 mg Capsule PO (12:12)
[2024-10-21] MEDS: sodium chloride 0.9% 1,000 ML 30 ML IV (12:12)
[2024-10-21] MEDS: CELEcoxib 200 mg Capsule 400 MG PO (12:13)
--- NOTE | 2024-10-21 12:13 | P.HPUD_ITS ---
Surgery/Procedure H&P Update DATE OF PROCEDURE: October 21, 2024 DATE H&P PERFORMED: 10/11/24 H&P UPDATE INFORMATION: I have reviewed H&P completed within last 30 days, I have examined patient prior to procedure, Changes to prior documentation as noted here (Patient urine repeated with subsequent clean catheterization urine), H&P is in [facility] EMR on date indicated and Risks and benefits of the procedure reviewed PLANNED PROCEDURE: Operation Date: 10/21/24 13:00 Proposed Procedures p LEFT Total Hip Arthroplasty(Left) - Hayley Lester MD Related Problem List Diagnoses (1) Osteoarthritis of left hip: Qualifiers: Osteoarthritis type: primary Qualified Code(s): M16.12 - Unilateral primary osteoarthritis, left hip
[2024-10-21] MEDS: tranexamic acid 1,000 MG/100 ML PREMIX 600 MG IV ×2 (12:37→16:49)
[2024-10-21] MEDS: ceFAZolin 2,000 mg SDV 2000 MG IVP ×2 (12:40→20:05)
[2024-10-21] MEDS: BUPivacaine liposome 13.3 mg/mL SDV 20 mL 266 MG INFILTRATI (13:26)
[2024-10-21] MEDS: BUPivacaine 0.5% INJ 30 mL 20 ML INJECTION (13:30)
[2024-10-21] MEDS: ceFAZolin 1,000 mg SDV 1000 MG IRRIGATION (13:31)
[2024-10-21] MEDS: VANCOMYCIN ADD-Vantage 1,000 MG VIAL 1000 MG INTRA-ARTI (13:35)
--- NOTE | 2024-10-21 15:04 | XRR_ITS ---
PROCEDURE INFORMATION: Exam: XR Pelvis Exam date and time: 10/21/2024 3:18 PM Age: 64 years old Clinical indication: Prior surgery; Surgery date: Post-operative (0-2 days); Surgery type: Post op left total hip; Additional info: Left total hip arthroplasty, low ap pelvis TECHNIQUE: Imaging protocol: Radiologic exam of the pelvis. Views: 1 or 2 view. COMPARISON: CR XR hip RT 2-3V wo/w pel* [id number] 07/01/2024 2:17 PM FINDINGS: Bones/joints: Cortical irregularity in the lesser trochanter suggesting possible fracture at this site. Status post left total hip arthroplasty. Hardware is intact. Severe osteoarthritis of the right hip with superior displacement of the femoral head relative to the acetabulum is again noted. Soft tissues: Postop changes in the soft tissues of the left hip. XR/XR pelvis 1-2V* [id number] IMPRESSION: 1. Cortical irregularity in the left lesser trochanter suggesting nondisplaced fracture. 2. Hardware is intact. 3. Severe osteoarthritis ([id number] articulation) of the right hip joint with superior displacement of the femoral head relative to the acetabulum.
--- NOTE | 2024-10-21 15:04 | PM.OP ---
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 Very tight adductor with flattening of the femoral head, severe deformity, complete obliteration of the normal structure of the head and cartilage. Procedure done: Left total hip arthroplasty Left hip adductor release Implants: The Rolly total hip system with a size 54 mm by E alpha code Trident II Tritanium acetabular shell with an MDM liner size 42 mm inner diameter by E alpha code.? A size 4 Accolade II 127 degree neck angle hip stem with a size 28 mm x +0 mm femoral head and a sabianist MDM X3 insert size 28 mm x 42E Specimens removed/disposition: Femoral head, disposed of Pathology: None Surgeon: Hayley Lester MD Lens Grinder And Polisher: Nancy Ramsey, nurse practitioner, whose services were required for positioning, exposure, retraction, closure, and completion of the surgical procedure. Anesthesia: Spinal (With MAC, ASA 3) Estimated blood loss (mL): 390 IV fluids (mL): 1,500 Urine output (mL): 150 Complications: None Findings: As noted in postoperative findings plus adductor tightness Brief History: This 64-year-old woman presented with complaints of severe bilateral hip pain. After discussion in the office, she wished to proceed with addressing the left hip first. She had previously been seen and had to have dental clearance prior to surgical intervention, and she has accomplished this. After discussion of risks and complications as well as benefits of surgery, the patient wished to proceed with left total hip arthroplasty. The patient was in agreement and wished to proceed. On the morning of surgery, she was again seen and prepared for the surgery. She was given opportunity to ask questions and have them answered. Procedure: The patient was brought to the operating theater.? She was transferred to the operating room table and subsequently administered a spinal anesthesia with MAC, ASA 3. This was well-tolerated.? Following administration of adequate anesthesia, the patient was placed in full lateral position and held in position with a pegboard.? The patient's left lower extremity was then prepped and draped in usual fashion utilizing DuraPrep.? It was draped free.? Following prepping and draping, a surgical pause was performed.? At the time of surgical pause, we identified the site and side of surgery.? We also identified the patient and preoperative surgical markings.?The patient's operative leg was compared to the opposite leg as a length comparison.? Patient had severe disease in the opposite hip as well, and leg lengths were of minimal importance with regard to the surgical procedure. Confirmation was made of equipment availability.? Additionally, the patient's preoperative IV antibiotic, Ancef 2 g, and TXA administration was confirmed as well.? X-rays were also reviewed as well as the patient's prior MRI. Following the surgical pause, an incision was made centering over the patient's greater trochanter continuing proximally and distally as necessary to allow access to the hip joint.? Dissection continued through skin and soft tissues using a scalpel, and hemostasis was obtained using electrocautery. The tensor fascia willis was identified and incised longitudinally.? Sciatic nerve was identified and protected throughout the surgical procedure.? A Charnley U retractor was placed after the tensor fascia willis had been incised longitudinally, and the sciatic nerve had been identified. Although range of motion was severely limited, the hip was internally rotated, and the piriformis muscle was identified and tagged. Piriformis muscle along with the remaining short external rotators were then incised from the posterior aspect of the hip joint.? These were retracted posteriorly.? The capsule was entered in a T-type fashion with the edges being tagged, and subsequently, the hip was dislocated. Dislocation was difficult secondary to the significant deformity. The labrum, which which was degenerative, torn, and with significant synovitis, was excised with further excision accomplished once the femoral head was removed.? Following hip dislocation, a femoral neck osteotomy was accomplished in the appropriate position.??Femoral head was noted to be very deformed with significant femoral head collapse. There was essentially no normal anatomy left to the femoral head. We then evaluated the acetabulum. The femur was retracted anteriorly.? Soft tissues were retracted, and the labrum was further removed. Anterior capsular release was required to be able to move the proximal aspect of the femur enough to prepare the femoral canal and also to place a femoral head to complete the hip arthroplasty. We then began reaming.? Once the femoral head was removed, there was noted to be significant loss of cartilage within the acetabulum. We reamed to a size 53 to allow for a size 54 acetabular shell. The size 54 mm acetabular shell was impacted into position without difficulty. It was noted to seat nicely.? The MDM liner was then impacted into position with care being taken to assure it seated appropriately. It was noted that the acetabulum matched the bony anatomy.? The cup was noted to seat nicely and had good fixation upon impact. Attention was directed to the proximal femur.? The proximal femur was lifted out of the wound and further anterior release was accomplished.? A canal finder was passed after the box chisel.? The reamer was used to lateralize.? We then began broaching. We broached sequentially to a size 4 Accolade II broach. Trial was accomplished with a +0 mm offset femoral head. The hip was stable at 90 degrees of flexion with 80 degrees of internal rotation and 30 degrees of adduction. It was also stable to external rotation and to toe hanging. The leg was not felt to be overlying. Therefore, trial components were removed after the hip was dislocated. The size 4 Accolade II 127 degree neck angle hip stem was impacted into position without difficulty and onto this was placed a +0 mm x 28 mm femoral head which had been assembled into the MDM insert size 48G.? With a +0 mm femoral head, we had the above-noted stability.? The stem was noted to seat nicely prior to placement of the femoral head.? The wound was copiously irrigated with 20 mL of Betadine and 500 mL of normal saline mixed together.? Subsequently, we suctioned this out and irrigated the wound copiously with lactated Ringer's.? At this time, with all components in appropriate position, the hip was reduced.? Following reduction of the prosthesis once again, we confirmed the stability of the hip.? Leg lengths were also felt to be satisfactory. Exparel was injected. Being satisfied with the prosthesis, attention was directed to closure.? Closure was accomplished with 0 Vicryl in the capsular tissues.? Piriformis was reattached with 0 Vicryl as well.? Tensor fascia willis was closed with 0 Vicryl in an interrupted fashion.? The subcutaneous tissues were closed with 2-0 Monocryl STRATAFIX.? Vancomycin powder and a Gelfoam thrombin mixture was placed into the wound as well.? The skin was closed with a running 3-0 Monocryl strata fix followed by Nataly Do and Halley. The patient was placed in an abduction pillow.? At this time, attention was directed to the patient's groin area. Plans were made for an adductor tenotomy. The area was prepped with Betadine. A 12 blade was used to enter the skin and perform an adductor tenotomy to allow for better range of motion and less stiffness. This was well-tolerated as well. Sterile dressing was placed consisting of 4 x 4's. Patient was placed in the abduction pillow and secured in place. Patient was transferred off the operative bed and was brought to the recovery room in a satisfactory condition. Related Problem List Diagnoses (1) Osteoarthritis of left hip: (2) Avascular necrosis of bone of left hip:
[2024-10-21] MEDS: fentaNYL 50 mcg/mL INJ 2mL IVP (15:38)
--- NOTE | 2024-10-21 15:50 | ANE.PACU2 ---
Inpatient post-anesthesia follow up: Airway intact: Yes Vital signs: Temperature 97.6 F Pulse Rate 81 Respiratory Rate 16 Blood Pressure 151/78 Pulse Oximetry 96 Oxygen Delivery Me thod Room Air Oxygen Flow Rate 6 Fraction of Inspir ed Oxygen Hydration adequate: Yes Nausea and vomiting: No Pain level: 1 Mental status: Baseline
[2024-10-21] MEDS: mupirocin oint 22 gm 1 APPLIC NASAL (16:45)
[2024-10-21] MEDS: chlorhexidine gluconate 0.12% Btl 473 mL 15 ML MUCOUS MEM (16:45)
[2024-10-21] MEDS: calcium carbonate 500 mg Chew Tablet 1000 MG PO (16:46)
[2024-10-21] MEDS: sennosides-docusate Tablet 2 TAB PO (16:46)
[2024-10-21] MEDS: oxyCODONE 5 mg IR Tab/Cap PO ×2 (16:46→21:55)
[2024-10-21] MEDS: iron polysaccharide complex 150 mg Capsule PO (16:47)
[2024-10-21] MEDS: nitrofurantoin SR (BID) 100 mg Capsule PO (16:47)
[2024-10-21] MEDS: chlorhexidine gluconate 0.12% Btl 473 mL 30 ML MUCOUS MEM ×2 (16:48→20:17)
[2024-10-21] MEDS: CELEcoxib 200 mg Capsule PO (21:55)
[2024-10-22 01:56] VITALS: RESP 18
[2024-10-22] MEDS: oxyCODONE 5 mg IR Tab/Cap PO ×2 (01:56→05:51)
[2024-10-22] MEDS: acetaminophen 1,000 MG/100 ML PIGGYBACK 400 MG IV ×2 (03:51→12:12)
[2024-10-22] MEDS: ceFAZolin 2,000 mg SDV 2000 MG IVP ×2 (03:51→12:09)
[2024-10-22 05:49] LABS: Basophils % 0.5 %; Eosinophils # 0.1 10^3/uL (0.0-0.8); Eosinophils % 1.1 %; Hematocrit 37.2 % (36-47); Lymphocytes # 1.1 10^3/uL (0.8-4.8); Lymphocytes % 12.6 %; Mean Corpuscular HGB Conc 33.1 g/dL (30-55); Mean Corpuscular Hemoglobin 28.3 pg (27-33); Mean Corpuscular Volume 85.7 fl (85-98); Mean Platelet Volume 10.2 fL (7.4-10.4); Monocytes # 0.7 10^3/uL (0.2-0.9); Monocytes % 7.7 %; Neutrophils # 6.59 10^3/uL (1.8-7.7); Neutrophils % 77.5 %; Nucleated Red Blood Cells % 0 %; Platelet Count 291 10^3/cmm (157-399); Red Blood Count 4.34 10^6/uL (3.85-5.65); Red Cell Distribution Width 13.2 % (12.1-15.1); White Blood Count 8.49 10^3/uL (3.29-11.43)
[2024-10-22 05:51] VITALS: RESP 16
[2024-10-22] MEDS: pantoprazole DR 40 mg Tablet PO ×2 (05:51→08:04)
[2024-10-22 06:08] LABS: Blood Urea Nitrogen 13 mg/dL (8-23); Calcium 8.1 mg/dL (8.5-10.5); Carbon Dioxide 23 mmol/L (22-29); Chloride 108 mmol/L (98-107); Creatinine Clr Calc Pharmacy 74.7982; Glucose 130 mg/dL (65-115); Osmolality Calculated 292 mOsm/kg (285-295); Sodium 140 mmol/L (136-145)
[2024-10-22] MEDS: lisinopril 10 mg Tablet 30 MG PO (08:04)
[2024-10-22] MEDS: cholecalciferol (vitamin D3) 1,000 unit Tablet 1000 UNIT PO (08:04)
[2024-10-22] MEDS: iron polysaccharide complex 150 mg Capsule PO (08:04)
[2024-10-22] MEDS: multivitamin therapeutic Tablet 1 TAB PO (08:05)
[2024-10-22] MEDS: nitrofurantoin SR (BID) 100 mg Capsule PO (08:05)
[2024-10-22] MEDS: mupirocin oint 22 gm 1 APPLIC NASAL (08:05)
[2024-10-22] MEDS: fluoxetine 20 mg Capsule 40 MG PO (08:05)
[2024-10-22] MEDS: sennosides-docusate Tablet 2 TAB PO (08:05)
[2024-10-22] MEDS: calcium carbonate 500 mg Chew Tablet 1000 MG PO (08:05)
[2024-10-22] MEDS: cetirizine 10 mg Tablet PO (08:05)
[2024-10-22] MEDS: docusate sodium 100 mg Capsule PO (08:05)
[2024-10-22] MEDS: aspirin 325 mg EC Tablet PO (08:05)
[2024-10-22] MEDS: chlorhexidine gluconate 0.12% Btl 473 mL 15 ML MUCOUS MEM ×2 (08:06→12:25)
[2024-10-22 08:19] VITALS: BP 151/78; PULSE 81; RESP 16; TEMP 36.4; O2SAT 96
--- NOTE | 2024-10-22 10:29 | PC.CHAP ---
Pastoral Care Encounter/Spiritual Assessment Type of Contact [] Declined partnership development manager visit [] Patient/Family/Request visit [] Outpatient visit [] Follow-up visit [] Physician referral [] Code/Alert [x] Routine visit [] Staff referral [] Actively dying [] Patient sleeping [] Family support [] [] Out of room [] Palliative care [] [] Receiving care in room [] Pre-surgical visit [] Trauma [] Long length of stay [] ICU visit [] Other: Relational/Emotional Strength [x] Patient feels connected with others/family/visitors/staff [] Distress [] Loneliness/isolation [] Abandonment Spirituality of Patient [x] Person of Tamara [] Attends Confucianism of their Tamara [x] Believes in Prayer [] Reads Bible or Yazidism materials [] There are Spiritual issues to be addressed Mental Health Program Director Interventions [x] Prayer [x] Active listening [x] Non-anxious presence [x] Spiritual/emotional support [] Crisis/trauma care [] Spiritual counseling [] Bereavement support [] Provided bereavement packet [] Provided Bible/devotional materials [] Provided toy/stuffed animal, coloring book to patient or family member [] Provided Communion [] Anointing/[place] [] Salvation [x] Completed spiritual assessment [] Other: Impact on Illness or Injury [] Angry [] Fearful [] Anxious [] Often cries [] Exhaustion [] Unable to work [] Unable to attend judaism [] Unable to walk/stand [] Unable to read [] Unable to drive [] Unable to eat/drink [] Unable to sleep [] Unable to be with family [] Patient intubated [] Other: Summary Time spent with patient 15 min
[2024-10-22] MEDS: CELEcoxib 200 mg Capsule PO (12:09)
--- NOTE | 2024-10-22 12:45 | P.DS_ITS ---
Discharge Providers Date of Admission: 10/21/24 15:22 Date of Discharge: October 23, 2024 Attending Provider at Admission: Hayley Lester MD Attending Provider at Discharge: Hayley Lester MD Primary Care Provider: Elizabeth Abel NP Diagnoses at Discharge Discharge Diagnosis (1) S/P total left hip arthroplasty: Status: Acute Permanent problem details: Date of procedure: October 21, 2024 Pre-op diagnosis: Left hip avascular necrosis with degenerative osteoarthritis Procedure done: Left total hip arthroplasty. Left hip adductor release. Implants: The Glendo total hip system with a size 54 mm by E alpha code Trident II Tritanium acetabular shell with an MDM liner size 42 mm inner diameter by E alpha code. A size 4 Accolade II 127 degree neck angle hip stem with a size 28 mm x +0 mm femoral head and a confucianism MDM X3 insert size 28 mm x 42E Surgeon: Hayley Lester MD (2) Osteoarthritis of left hip: Status: Acute Qualifiers: Osteoarthritis type: primary Qualified Code(s): M16.12 - Unilateral primary osteoarthritis, left hip (3) Avascular necrosis of bone of left hip: Status: Acute Reason for Visit Reason for Visit: M16.12 Brief History: This 64-year-old woman presented with complaints of severe bilateral hip pain. After discussion in the office, she wished to proceed with addressing the left hip first. She had previously been seen and had to have dental clearance prior to surgical intervention, and she has accomplished this. After discussion of risks and complications as well as benefits of surgery, the patient wished to proceed with left total hip arthroplasty. The patient was in agreement and wished to proceed. On the morning of surgery, she was again seen and prepared for the surgery. She was given opportunity to ask questions and have them answered. She underwent successful left total hip arthroplasty on Monday, October 21, 2024. Hospital Course Hospital Course This is a 64-year-old, female patient, who is status post day 1 left total hip arthroplasty. Patient has been doing well and states that she has not been taking her oral narcotic medications today, with her last dose being at 0200 this morning. She has been utilizing Tylenol only, with her pain well- controlled at rest. With increased activity, her pain does increase, per her report. She has been successfully working with physical therapy services, ambulating with the assistance of a walker. Her vital signs and postoperative labs are stable and she is found safe for discharge. At this time, we will plan to discharge her home, with home nursing and therapy services. Her daughter will also be staying with her intermittently, as she is a paid caregiver. We will plan to see her back here in the clinic in 2 weeks postoperatively. They will contact the office with any questions or concerns. Physical Exam Const: COMMON NORMALS: no acute distress, average body habitus, patient oriented x3, no limitations, alert and well nourished GENERAL APPEARANCE: cooperative; not anxious and not combative ORIENTATION/CONSCIOUSNESS: Yes awake, Yes oriented to person, Yes oriented to place and Yes oriented to time HENMT: COMMON NORMALS: normocephalic and atraumatic HEAD & SCALP: normocephalic and atraumatic Resp: COMMON NORMALS: normal respiratory effort Cardio: OTHER: Denies cough, shortness of breath or chest pressure/discomfort. Extremity: LEFT LOWER EXTREMITY: Yes hip joint Left hip: Yes inspection (Operative dressing dry and intact. Mild swelling. No bruising.), Yes palpation (Mild TTP to lateral hip/incision.), Yes ROM (Able to straight leg raise. Sitting comfortably with hip flexed to 90.) and Yes neurovascular exam (Sensation intact to light touch. Rapid cap refill.) and Yes lower leg Left lower leg: Yes special tests (No calf erythema, tenderness or abnormal swelling.) Left lower leg special tests: Natalie's sign: Negative Neuro: COMMON NORMALS: patient oriented x3 SENSORIUM/ORIENTATION: Yes alert, Yes oriented to person, Yes oriented to place and Yes oriented to time Psych: ATTITUDE: Yes engaged Skin: COMMON NORMALS: no rashes or lesions noted, turgor normal and no jaundice GENERAL SKIN EXAM: no rashes or lesions noted and turgor normal Urinary Catheter Management: Daniel: Cath Placed During This Visit: yes Reason for Continuing Indwelling Catheter: Perioperative Use in Selected Surgeries Urinary Catheter Date of Insertion: 10/21/24 Urinary Catheter Time of Insertion: 11:28 Discharge Data Studies Completed and Pending Completed Studies During Hospitalization Category Date Time Status XR pelvis 1-2V* [id number] Routine Exams 10/21/24 15:04 Completed Radiology Impressions Pelvis X-Ray 10/21/24 15:04 IMPRESSION: 1. Cortical irregularity in the left lesser trochanter suggesting nondisplaced fracture. 2. Hardware is intact. 3. Severe osteoarthritis ([id number] articulation) of the right hip joint with superior displacement of the femoral head relative to the acetabulum. Laboratory Results WBC 8.49 10^3/uL (3.29-11.43) 10/22/24 05:30 RBC 4.34 10^6/uL (3.85-5.65) 10/22/24 05:30 Hgb 12.30 g/dL (11.27-16.99) 10/22/24 05:30 Hct 37.2 % (36-47) 10/22/24 05:30 MCV 85.7 fl (85-98) 10/22/24 05:30 MCH 28.3 pg (27-33) 10/22/24 05:30 MCHC 33.1 g/dL (30-55) 10/22/24 05:30 RDW 13.2 % (12.1-15.1) 10/22/24 05:30 Plt Count 291 10^3/cmm (157-399) 10/22/24 05:30 MPV 10.2 fL (7.4-10.4) 10/22/24 05:30 Neut % (Auto) 77.5 % 10/22/24 05:30 Lymph % (Auto) 12.6 % 10/22/24 05:30 [place] % (Auto) 7.7 % 10/22/24 05:30 Eos % (Auto) 1.1 % 10/22/24 05:30 Baso % (Auto) 0.5 % 10/22/24 05:30 Neut # (Auto) 6.59 10^3/uL (1.8-7.7) 10/22/24 05:30 Lymph # (Auto) 1.1 10^3/uL (0.8-4.8) 10/22/24 05:30 [place] # (Auto) 0.7 10^3/uL (0.2-0.9) 10/22/24 05:30 Eos # (Auto) 0.1 10^3/uL (0.0-0.8) 10/22/24 05:30 Baso # (Auto) 0.0 10^3/uL (0.0-0.1) 10/22/24 05:30 Nucleated RBC % (auto) 0 % 10/22/24 05:30 Nucleated RBCs # 0.0 /100WBC 10/22/24 05:30 Sodium 140 mmol/L (136-145) 10/22/24 05:30 Potassium 4.0 mmol/L (3.5-5.1) 10/22/24 05:30 Chloride 108 mmol/L (98-107) H 10/22/24 05:30 Carbon Dioxide 23 mmol/L (22-29) 10/22/24 05:30 Anion Gap 13.0 (5-19) 10/22/24 05:30 BUN 13 mg/dL (8-23) 10/22/24 05:30 Creatinine 0.7 mg/dL (0.5-0.9) 10/22/24 05:30 GFR Calculation 84.0 mL/min (90-130) L 10/22/24 05:30 Glucose 130 mg/dL (65-115) H 10/22/24 05:30 Calculated Osmolality 292 mOsm/kg (285-295) 10/22/24 05:30 Calcium 8.1 mg/dL (8.5-10.5) L 10/22/24 05:30 Urine Color Yellow (Yellow) 10/21/24 11:25 Urine Appearance Clear (CLEAR) 10/21/24 11:25 Urine pH 6.5 (5-7) 10/21/24 11:25 Ur Specific [place] 1.017 (1.005-1.030) 10/21/24 11:25 Urine Protein Negative (Negative) 10/21/24 11:25 Urine Glucose (UA) Negative (Normal) 10/21/24 11:25 Urine Ketones Negative (Negative) 10/21/24 11:25 Urine Blood Trace (Negative) A 10/21/24 11:25 Urine Nitrate Negative (Negative) 10/21/24 11:25 Urine Bilirubin Negative (Negative) 10/21/24 11:25 Urine Urobilinogen 1.0 mg/dL (Negative) 10/21/24 11:25 Ur Leukocyte Esterase Negative (Negative) 10/21/24 11:25 Urine RBC 6-10 /hpf (0-2) 10/21/24 11:25 Urine WBC 0-5 /hpf (0-5) 10/21/24 11:25 Ur Squamous Epith Cells 0-5 /hpf (0-5) 10/21/24 11:25 Amorphous Sediment Not Reportable 10/21/24 11:25 Urine Bacteria None seen /hpf (NONE) 10/21/24 11:25 Hyaline Casts 0.40 /lpf 10/21/24 11:25 Vitals Last Vital Signs Temp 98.2 F 10/22/24 17:21 Pulse 84 10/22/24 17:21 Resp 16 10/22/24 17:21 BP 103/55 10/22/24 17:21 Pulse Ox 96 10/22/24 17:21 O2 Del Method Room Air 10/22/24 13:17 O2 Flow Rate 6 10/21/24 15:21 Discharge Plan Discharge Patient Disposition: Home Health Service Condition: Stable Prescriptions: New aspirin 325 mg Tablet,Delayed Release (Dr/Ec) 325 mg PO DAILY 30 Days Qty: 30 0RF oxycodone 5 mg Tablet 5 mg PO Q4H PRN (Reason: Moderate To Severe Pain) 7 Days Qty: 30 0RF Continued diclofenac sodium 75 mg tablet,delayed release (DR/EC) 75 mg PO BID PRN (Reason: pain) Qty: 180 0RF (DME) standard walker See Rx Instructions .Route .MEDSUPPLY Qty: 1 0RF Rx Instructions: As directed. Order 99 days (DME) Blood pressure cuff See Rx Instructions .Route .MEDSUPPLY Qty: 1 0RF Rx Instructions: As directed (DME) home BP monitoring device See Rx Instructions .Route .MEDSUPPLY Qty: 1 0RF Rx Instructions: As directed for HTN monitoring omeprazole 20 mg capsule,delayed release(DR/EC) 20 mg PO QAM Qty: 90 0RF hydroxyzine HCl 25 mg tablet 25 mg PO BID PRN (Reason: anxiety) Qty: 60 0RF lisinopril 30 mg tablet 30 mg PO DAILY Qty: 30 0RF chlorhexidine gluconate 0.12 % mouthwash 15 ml mucous membrane DAILY Qty: 118 1RF cetirizine 10 mg tablet 10 mg PO DAILY Qty: 30 2RF pantoprazole 20 mg tablet,delayed release (DR/EC) 20 mg PO DAILY Qty: 30 2RF fluoxetine 40 mg capsule 40 mg PO DAILY Qty: 90 0RF nitrofurantoin monohyd/m-cryst [Macrobid] 100 mg capsule 100 mg PO BID 7 Days Qty: 14 0RF Rx Instructions: must administer with a meal/food Changed acetaminophen 500 mg tablet 1,000 mg PO Q6H Qty: 30 0RF Discharge Orders: Discharge Order (Routine); Ordered 10/22/24 Ordered By: Hayley Lester Other Ambulatory Orders: DME: Walker (Order) Location: None Selected Ordered By: Hayley Lester Referrals: Hayley Lester MD [Physician, Orthopedics] - 11/04/24 11:00 am Discharge Diet: Advance as tolerated and Usual diet Discharge Activity: Limit activity as instructed, Use walker/crutches as instructed and As per PT/OT instructions Patient Instructions: Aspirin (By mouth), Oxycodone, Rapid Release (By mouth), Acute Wound Care (DC), Precautions after Total Joint Replacement Surgery (DC), Joint Replacement Surgery (DC), Post Anesthesia Care Activity Restrictions/Additional Instructions: Weight-bear as tolerated. Ambulation and strengthening per physical therapy. Posterior hip precautions as you are instructed at all times. You may shower, but do not soak the hip in water such as bath water, river water, pool, or [place]. Maintain dressing until you are seen in the office or it comes off on its own. Discharge Attestations Time Spent in Discharge Care*: greater than 30 min Quality Metrics Clinical Quality Measures [ No reported AMI, CVA or VTE this stay] Coding Level of Care Code Acute Code for Chg Fwd Diagnoses S/P total left hip arthroplasty Z96.642 Primary osteoarthritis of left hip M16.12 Osteoarthritis type: primary Avascular necrosis of bone of left hip M87.052
[2024-10-22 13:17] VITALS: BP 103/55; PULSE 84; RESP 16; TEMP 36.8; O2SAT 96
--- NOTE | 2024-10-22 15:43 | PC.NURSE ---
Urinary catheter was pulled at [address] Fung and Dr. Sanders.
[2024-10-22 17:21] VITALS: BP 103/55; PULSE 84; RESP 16; TEMP 36.8; O2SAT 96
--- NOTE | 2024-10-22 17:31 | PC.NURSE ---
Discussed discharge instructions, new medications, continued medications and changed medications with patient and daughter. Went over restrictions and no soaking in bath tub or any immersion in any water several times with patient and daughter. Both verbalized understanding.
== END 2024-10-22 17:35 | disposition home health service (06) ==
LOC: MEDSURG 15:22
PROVIDERS: Nurse Practitioner; Admitting Provider Specialist; Visit Provider Specialist
PROC: (CPT 27130; principal; 2024-10-21 12:40)
PROC: (CPT 27001; 2024-10-21 12:40)
DX: M16.12 Unilateral primary osteoarthritis, left hip (principal); M87.052 Idiopathic aseptic necrosis of left femur; I10 Essential (primary) hypertension; K21.9 Gastro-esophageal reflux disease without esophagitis; M54.16 Radiculopathy, lumbar region; Z79.899 Other long term (current) drug therapy; Z87.891 Personal history of nicotine dependence
CPT/HCPCS: 27001; 27130; 36415; 51702; 72170; 80048; 81001; 85025; 87086; 97110; 97116; 97161; 97167; 97530; A4216; C1776; G0378; J0131; J0666; J0690; J2250; J2371; J2704; J3010; J3370; J3490; J7030; J9999

== ENCOUNTER → 2024-11-04 10:55 | Outpatient (BNVA) | payer MEDICARE, MEDICAID, SELFPAY | PROVIDERS: Visit Provider Nurse Practitioner | DX: Z98.890 Other specified postprocedural states (principal); Z96.642 Presence of left artificial hip joint | CPT/HCPCS: 99024 ==

== ENCOUNTER → 2024-11-18 15:27 | Outpatient (BNVA) | payer MEDICARE, MEDICAID, SELFPAY | PROVIDERS: Visit Provider Nurse Practitioner | DX: Z96.642 Presence of left artificial hip joint (principal); M87.052 Idiopathic aseptic necrosis of left femur; M16.12 Unilateral primary osteoarthritis, left hip; M54.16 Radiculopathy, lumbar region | CPT/HCPCS: 73502; 99024 ==

== ENCOUNTER → 2024-12-30 14:18 | Outpatient (BNVA) | payer MEDICARE, MEDICAID, SELFPAY | PROVIDERS: Visit Provider Nurse Practitioner | DX: M16.11 Unilateral primary osteoarthritis, right hip (principal); M54.16 Radiculopathy, lumbar region; Z96.642 Presence of left artificial hip joint; Z98.890 Other specified postprocedural states | CPT/HCPCS: 73502; 99214 ==

== ENCOUNTER 2025-01-08 14:24 | Outpatient (CLI) | payer MEDICARE, MEDICAID, SELFPAY ==
--- NOTE | 2025-01-08 14:32 | MM_ITS ---
WS: [id number] BILATERAL 3D TOMOSYNTHESIS DIGITAL SCREENING MAMMOGRAPHY WITH CAD CLINICAL INFORMATION: SCREENING HISTORY: Screening mammogram. No current complaints. COMPARISON: Baseline TECHNIQUE: Bilateral CC and MLO views. FINDINGS: Scattered fibroglandular densities bilaterally. No suspicious focal mass, asymmetry, calcifications, or architectural distortion. No evidence of malignancy. Prominent lymph nodes in the axilla but with persistent fatty arian. MM/MM scr tomosynthesis [id number] IMPRESSION: DENSITY: There are scattered areas of fibroglandular density. BI-RADS: 2 - Benign. FOLLOW UP: 1 Year Follow-up Recommend return to annual screening mammography.
--- NOTE | 2025-01-08 14:32 | XR_ITS ---
WS: [id number] SCREENING DEXA SCAN [email or web address] CLINICAL INFORMATION: POSTMENOPAUSAL COMPARISON: None. FINDINGS: The L1-L4 bone mineral density measures 1.224 g/cm2. This corresponds to a T score score of 0.4 and Z score of 1.1. Right femoral neck bone mineral density measures 0.882. This corresponds to a T score -1.0 and Z score of -0.4. XR/XR DEXA axial skeleton* [id number] IMPRESSION: Normal bone mineralization lumbar spine. Osteopenia RIGHT femoral neck. Patient's FRAX calculated 10 year probability for major osteoporotic fracture i s 9.6% and osteoporotic hip fracture is 0.7%.
== END 2025-01-08 14:25 | disposition home or self-care (01) ==
LOC: RAD 14:26
PROVIDERS: PCP Family Medicine; Visit Provider Family Medicine
DX: Z12.31 Encounter for screening mammogram for malignant neoplasm of breast (principal); Z13.820 Encounter for screening for osteoporosis; Z78.0 Asymptomatic menopausal state; N64.89 Other specified disorders of breast; R92.323 Mammographic fibroglandular density, bilateral breasts; M85.851 Other specified disorders of bone density and structure, right thigh
CPT/HCPCS: 77063; 77067; 77080

== ENCOUNTER → 2025-02-03 11:21 | Outpatient (BNVA) | payer MEDICAID, SELFPAY | PROVIDERS: Visit Provider Nurse Practitioner | DX: M16.11 Unilateral primary osteoarthritis, right hip (principal); M87.051 Idiopathic aseptic necrosis of right femur; M85.60 Other cyst of bone, unspecified site; Z01.818 Encounter for other preprocedural examination | CPT/HCPCS: 36415; 73502; 80053; 81001; 85025; 99214 ==

== ENCOUNTER 2025-02-13 12:30 | Outpatient (CLI) | payer OTHER, MEDICAID, SELFPAY ==
[2025-02-13 12:58] LABS: Glucose Urine UA Negative (Normal); Nitrate Urine Negative (Negative); Specific Gravity, Urine 1.007 (1.005-1.030)
== END 2025-02-13 12:31 | disposition home or self-care (01) ==
PROVIDERS: PCP Family Medicine; Visit Provider Nurse Practitioner
DX: R30.0 Dysuria (principal)
CPT/HCPCS: 81001

== ENCOUNTER 2025-02-24 13:55 | Outpatient (CLI) | payer OTHER, MEDICAID, SELFPAY ==
--- NOTE | 2025-02-24 15:45 | CT_ITS ---
WS: [id number] CT RIGHT hip for GWENDOLYN procedure HISTORY: right hip pain. CHERYL planning Date: 02/24/2025 2:16 PM TECHNIQUE: Protocol for GWENDOLYN total hip replacement has been obtained. This includes axial imaging from the hip joint through the knee joint. DLP: [id number] FINDINGS: Advanced arthritis RIGHT hip with evidence of osteonecrosis. Flattening of the femoral head with associated sclerosis and subchondral cystic change. Sclerosis and subchondral cystic change in the underlying acetabulum. Prior postoperative changes LEFT CHERYL. Sigmoid diverticulosis. Vascular calcification. CT/CT hip RT GWENDOLYN [id number] IMPRESSION: CT imaging provided for GWENDOLYN robotic total hip.
== END 2025-02-24 13:56 | disposition home or self-care (01) ==
PROVIDERS: PCP Family Medicine; Visit Provider Nurse Practitioner
DX: M16.11 Unilateral primary osteoarthritis, right hip (principal); M87.051 Idiopathic aseptic necrosis of right femur; M87.9 Osteonecrosis, unspecified; M89.8X5 Other specified disorders of bone, thigh
CPT/HCPCS: 73700

== ENCOUNTER → 2025-02-25 13:28 | Outpatient (BNVA) | payer OTHER, MEDICAID, SELFPAY | PROVIDERS: PCP Family Medicine; Visit Provider Registered Nurse Neonatal Intensive Care | DX: R39.9 Unspecified symptoms and signs involving the genitourinary system (principal) | CPT/HCPCS: 81000 ==

== ENCOUNTER → 2025-03-17 12:11 | Outpatient (BNVA) | payer OTHER, MEDICAID, SELFPAY | PROVIDERS: PCP Family Medicine; Visit Provider Nurse Practitioner | DX: M87.051 Idiopathic aseptic necrosis of right femur (principal); M16.11 Unilateral primary osteoarthritis, right hip; M85.60 Other cyst of bone, unspecified site; M54.16 Radiculopathy, lumbar region | CPT/HCPCS: 99214 ==

== ENCOUNTER 2025-04-03 10:45 | Observation (INO) | payer MEDICARE, MEDICAID, SELFPAY ==
[2025-04-03] VITALS (17 sets, daily range): BP systolic 104–175; BP diastolic 56–92; PULSE 47–65; RESP 15–18; TEMP 36.2–37.2; O2SAT 91–99; BMI 34.0; BMI 35.8
[2025-04-03] MEDS: acetaminophen 1,000 MG/100 ML PIGGYBACK 400 MG IV ×2 (06:43→13:43)
--- NOTE | 2025-04-03 07:21 | ANES.PREANE2 ---
Pre-Anesthetic Assessment Height/Weight: Height 5 ft 3 in Weight 192 lb Temp Pulse Resp BP Pulse Ox O2 Del Method 98.9 F 64 18 175/92 96 Room Air 04/03/25 06:26 04/03/25 06:26 04/03/25 06:26 04/03/25 06:26 04/03/25 06:26 04/03/25 06:27 Preop Diagnosis: Hip arthritis Operation Date: 04/03/25 07:30 Proposed Procedures p RIGHT Total Hip Arthroplasty(Right) - Hayley Lester MD Was Beta Cora taken within 24 hours: Yes Was Clonidine taken within 24 hours: N/A Last intake: Intake Last Liquid Date 04/02/25 Last Liquid Time 22:30 Last Solid Date 04/02/25 Last Solid Time 22:30 Social No alcohol and No tobacco Exam alert, oriented x 3, clear to auscultation bilaterally and regular rate & rhythm Airway Submandibular: within normal limits Cervical ROM: within normal limits Mallampati: Class II Comments: Comments: Multiple missing teeth, denies any loose Anesthetic Plan ASA status: 3 Anesthesia: MAC and Regional (specify below) Other: No prior issues with anesthesia, patient had her other side done under spinal anesthesia and did well NPO since yesterday evening History of GERD, controlled with omeprazole Hypertension on lisinopril, amlodipine and metoprolol. BB taken today Denies any pulmonary issues Prior EKG showing sinus rhythm Labs reviewed and acceptable for procedure Plan for spinal anesthetic Medications/Allergies Home Medications ?Medication ?Instructions ?Recorded ?Confirmed ?Last Taken ?Type standard walker #1 ea 07/01/24 03/17/25 Unknown Rx shower chair #1 ea 10/31/24 03/17/25 Unknown Rx fluoxetine 40 mg capsule 40 mg PO DAILY #90 caps 11/18/24 04/03/25 04/03/25 Rx amlodipine 10 mg tablet 10 mg PO DAILY #90 tabs 11/25/24 04/03/25 04/03/25 Rx diclofenac sodium 75 mg 75 mg PO BID PRN pain #180 tabs 11/25/24 04/03/25 04/03/25 Rx tablet,delayed release lisinopril 40 mg tablet 40 mg PO DAILY #60 tabs 11/25/24 04/02/25 04/02/25 Rx cetirizine 10 mg tablet 10 mg PO DAILY #30 tabs 01/30/25 04/03/25 04/03/25 Rx hydroxyzine HCl 25 mg tablet 25 mg PO DAILY 04/02/25 04/03/25 04/03/25 History metoprolol succinate 25 mg 25 mg PO DAILY 04/02/25 04/03/25 04/03/25 History tablet,extended release 24 hr omeprazole 20 mg capsule,delayed 20 mg PO DAILY 04/02/25 04/03/25 04/03/25 History release Allergies Allergy/AdvReac Type Severity Reaction Status Date / Time No Known Allergies Allergy Verified 04/03/25 06:17 Current Medications Generic Name Dose Route Start Last Admin Trade Name Freq PRN Reason Stop Dose Admin Sodium Chloride 1,000 mls @ 30 mls/hr 04/03/25 06:15 04/03/25 06:43 Sodium Chloride 0.9% IV 04/04/25 06:14 30 mls/hr .Q24H PASCALE Administration PFSH Anesthesia Medical History Dysuria Avascular necrosis of bone of right hip Primary osteoarthritis of right hip Osteoarthritis of left hip Subchondral bone cyst Hypertension Degenerative joint disease Osteoarthritis, hip, bilateral Encounter to establish care Anxiety Joint pain Seasonal allergies GERD (gastroesophageal reflux disease) Surgical History S/P total left hip arthroplasty Date of procedure: October 21, 2024 Pre-op diagnosis: Left hip avascular necrosis with degenerative osteoarthritis Procedure done: Left total hip arthroplasty. Left hip adductor release. Implants: The [place] total hip system with a size 54 mm by E alpha code Trident II Tritanium acetabular shell with an MDM liner size 42 mm inner diameter by E alpha code. A size 4 Accolade II 127 degree neck angle hip stem with a size 28 mm x +0 mm femoral head and a pentecostal MDM X3 insert size 28 mm x 42E Surgeon: Hayley Lester MD Family History Father No problems noted. Mother No problems noted. Social History Smoking and tobacco/nicotine status: never used tobacco/nicotine Alcohol intake: never Substance/Drug Use: never
--- NOTE | 2025-04-03 07:29 | W.PM.OPSUD ---
Surgery/Procedure H&P Update DATE OF PROCEDURE: April 03, 2025 DATE H&P PERFORMED: 04/16/25 H&P UPDATE INFORMATION: I have reviewed H&P completed within last 30 days, I have examined patient prior to procedure, No changes to prior documentation, H&P is in [facility] EMR on date indicated and Risks and benefits of the procedure reviewed PREOP DIAGNOSIS: Right hip osteoarthritis PLANNED PROCEDURE: Operation Date: 04/03/25 07:30 Proposed Procedures p RIGHT Total Hip Arthroplasty(Right) - Hayley Lester MD Related Problem List Diagnoses 1. Primary osteoarthritis of left hip: Qualifiers: Osteoarthritis type: primary Qualified Code(s): M16.12 - Unilateral primary osteoarthritis, left hip 2. Avascular necrosis of bone of left hip:
[2025-04-03] MEDS: ceFAZolin 2,000 mg SDV 2000 MG IVP ×2 (07:45→14:31)
[2025-04-03] MEDS: tranexamic acid 1,000 mg/10mL SDV 1000 MG IV (07:50)
[2025-04-03] MEDS: ceFAZolin 1,000 mg SDV 1000 MG IRRIGATION (08:45)
[2025-04-03] MEDS: BUPivacaine 0.5% INJ 10 mL 20 ML INJECTION (08:50)
[2025-04-03] MEDS: BUPivacaine liposome 13.3 mg/mL SDV 20 mL 266 MG INJECTION (08:50)
--- NOTE | 2025-04-03 10:22 | PM.OP ---
Operative Report Date of procedure: April 03, 2025 Pre-op diagnosis: Avascular necrosis right hip with severe degenerative osteoarthritic change and femoral head collapse Post-op diagnosis: Avascular necrosis right hip with severe degenerative osteoarthritic change and femoral head collapse Post-op findings: Severe degenerative osteoarthritis and findings consistent with avascular necrosis. Flattening of the femoral head with complete obliteration of normal cartilage Procedure done: Right total hip arthroplasty Implants: The [place] total hip system with a size 52 mm by E alpha code Trident II Tritanium solidback acetabular shell with an MDM liner size 42 mm inner diameter by E alpha code.? A size 4 Accolade II 127 degree neck angle hip stem with a size 28 mm x +0 mm femoral head and a episcopalian MDM X3 insert size 28 mm x 42E Specimens removed/disposition: Femoral head, disposed of Pathology: None Surgeon: Hayley Lester MD Inside Sales Trainer: Nancy Ramsey, nurse practitioner, whose services were required for positioning, exposure, retraction, closure, and completion of the surgical procedure. Anesthesia: Spinal (With MAC, ASA 3) Estimated blood loss (mL): 550 IV fluids (mL): 1,500 Urine output (mL): 300 Complications: None Findings: Hip was stable at 90 degrees of flexion with 70 degrees of internal rotation and 20 degrees of adduction. Severe degenerative osteoarthritis with femoral head collapse. Condition: stable Disposition: PACU (Then to floor for postoperative rehabilitation and pain management) Brief History: This 65-year-old woman initially presented to the office with complaints of severe bilateral hip pain. On October 21, 2024, she underwent left total hip arthroplasty. Today, she presents for a right total hip arthroplasty. Risks and complications were explained to her in the office. Questions were answered and consents were signed. Patient wished to proceed with total hip arthroplasty. On the morning of surgery, she was given further opportunity to ask and have questions answered. Procedure: The patient was brought to the operating theater.? She was transferred to the operating room table and subsequently administered a spinal anesthesia with MAC, ASA 3. This was well-tolerated.? Following administration of adequate anesthesia, the patient was placed in full lateral position and held in position with a pegboard.? The patient's right lower extremity was then prepped and draped in usual fashion utilizing DuraPrep.? It was draped free.? Following prepping and draping, a surgical pause was performed.? At the time of surgical pause, we identified the site and side of surgery.? We also identified the patient and preoperative surgical markings.?The patient's operative leg was compared to the opposite leg as a length comparison.? Patient had a prior total hip arthroplasty on the left as noted above. Confirmation was made of equipment availability.? Additionally, the patient's preoperative IV antibiotic, Ancef 2 g, and TXA administration was confirmed as well.? X-rays were also reviewed as well as the patient's prior MRI. Following the surgical pause, an incision was made centering over the patient's greater trochanter continuing proximally and distally as necessary to allow access to the hip joint.? Dissection continued through skin and soft tissues using a scalpel, and hemostasis was obtained using electrocautery. The tensor fascia willis was identified and incised longitudinally.? Sciatic nerve was identified and protected throughout the surgical procedure.? A Charnley U retractor was placed after the tensor fascia willis had been incised longitudinally, and the sciatic nerve had been identified. Although range of motion was severely limited, the hip was internally rotated, and the piriformis muscle was identified and tagged. Piriformis muscle along with the remaining short external rotators were then incised from the posterior aspect of the hip joint.? These were retracted posteriorly.? The capsule was entered in a T-type fashion with the edges being tagged, and subsequently, the hip was dislocated. Dislocation was difficult secondary to the significant deformity. The labrum, which which was degenerative, torn, and with significant synovitis, was excised with further excision accomplished once the femoral head was removed.? Following hip dislocation, a femoral neck osteotomy was accomplished in the appropriate position.??Femoral head was noted to be very deformed with significant femoral head collapse. There was essentially no normal anatomy left to the femoral head. We then evaluated the acetabulum. The femur was retracted anteriorly.? Soft tissues were retracted, and the labrum was further removed. We then began reaming.? Once the femoral head was removed, there was noted to be significant loss of cartilage within the acetabulum. We reamed to a size 51 to allow for a size 52 acetabular shell. The size 52 mm acetabular shell was impacted into position without difficulty. It was noted to seat nicely.? The MDM liner was then impacted into position with care being taken to assure it seated appropriately. It was noted that the acetabulum matched the bony anatomy.? The cup was noted to seat nicely and had good fixation upon impact. Attention was directed to the proximal femur.? The proximal femur was lifted out of the wound and further anterior release was accomplished.? A canal finder was passed after the box chisel.? The reamer was used to lateralize.? We then began broaching. We broached sequentially to a size 4 Accolade II broach. Trial was accomplished with a +0 mm offset femoral head. The hip was stable at 90 degrees of flexion with 70 degrees of internal rotation and 20 degrees of adduction. It was also stable to external rotation and to toe hang. Therefore, trial components were removed after the hip was dislocated. The size 4 Accolade II 127 degree neck angle hip stem was impacted into position without difficulty and onto this was placed a +0 mm x 28 mm femoral head which had been assembled into the MDM insert size 42E.? With a +0 mm femoral head, we had the above-noted stability.? The stem was noted to seat nicely prior to placement of the femoral head.? The wound was copiously irrigated with 20 mL of Betadine and 500 mL of normal saline mixed together.? Subsequently, we suctioned this out and irrigated the wound copiously with lactated Ringer's.? At this time, with all components in appropriate position, the hip was reduced.? Following reduction of the prosthesis once again, we confirmed the stability of the hip.? Leg lengths were also felt to be satisfactory. Exparel was injected. Being satisfied with the prosthesis, attention was directed to closure.? Closure was accomplished with 0 Vicryl in the capsular tissues.? Piriformis was reattached with 0 Vicryl as well.? Tensor fascia willis was closed with 0 Vicryl in an interrupted fashion.? The subcutaneous tissues were closed with 2-0 Monocryl STRATAFIX.? Vancomycin powder and a Gelfoam thrombin mixture was placed into the wound as well.? The skin was closed with a running 3-0 Monocryl strata fix followed by Dermabond Prineo and OpSite. The patient was placed in an abduction pillow. Patient was transferred off the operative bed and was brought to the recovery room in a satisfactory condition. Related Problem List Diagnoses 1. Primary osteoarthritis of right hip: 2. Avascular necrosis of bone of right hip:
[2025-04-03] MEDS: fentaNYL 50 mcg/mL INJ 2mL IVP (10:45)
--- NOTE | 2025-04-03 10:48 | XRR_ITS ---
PROCEDURE INFORMATION: Exam: XR Pelvis Exam date and time: 04/03/2025 10:35 AM Age: 65 years old Clinical indication: Device placement; Prior surgery; Surgery date: Post-operative (0-2 days); Surgery type: Hip; Additional info: Post-op TECHNIQUE: Imaging protocol: Radiologic exam of the pelvis. Views: 1 or 2 view. COMPARISON: CR XR hip RT 2-3V wo/w pel* [id number] 02/03/2025 11:23 AM FINDINGS: Bones/joints: Total right hip replacement. Prosthesis appears in anatomical position. Soft tissues: Subcutaneous emphysema. XR/XR pelvis 1-2V* [id number] IMPRESSION: New total right hip replacement.
--- NOTE | 2025-04-03 11:02 | ANE.PACU2 ---
Inpatient post-anesthesia follow up: Airway intact: Yes Vital signs: Temperature 97.7 F Pulse Rate 47 Respiratory Rate 16 Blood Pressure 147/69 Pulse Oximetry 96 Oxygen Delivery Me thod Room Air Oxygen Flow Rate Fraction of Inspir ed Oxygen Hydration adequate: Yes Nausea and vomiting: No Pain level: 1 Mental status: Baseline
[2025-04-03] MEDS: tranexamic acid 1,000 MG/100 ML PREMIX 600 MG IV (13:44)
[2025-04-03] MEDS: oxyCODONE 5 mg IR Tab/Cap PO (14:33)
[2025-04-03] MEDS: sennosides-docusate Tablet 2 TAB PO (16:14)
[2025-04-03] MEDS: chlorhexidine gluconate 0.12% Btl 473 mL 30 ML MUCOUS MEM (16:15)
[2025-04-03] MEDS: mupirocin oint 22 gm 1 APPLIC NASAL (16:16)
[2025-04-03] MEDS: acetaminophen 1,000 MG/100 ML PIGGYBACK 100 MG IV (21:52)
[2025-04-04] VITALS: BP 147/67; PULSE 60; RESP 16; TEMP 37.2; O2SAT 92
[2025-04-04] MEDS: chlorhexidine gluconate 0.12% Btl 473 mL 30 ML MUCOUS MEM ×2 (00:22→05:31)
[2025-04-04] MEDS: ceFAZolin 2,000 mg SDV 2000 MG IVP ×2 (00:23→07:33)
[2025-04-04 00:36] VITALS: RESP 18; O2SAT 96
[2025-04-04] MEDS: oxyCODONE 5 mg IR Tab/Cap PO ×2 (00:36→05:30)
--- NOTE | 2025-04-04 01:36 | PC.NURSE ---
0130 When rounding on patient, this nurse noted abductor pillow removed. Pt stated she wants to leave it off for awhile. Nurse explained to patient the risks of having the pillow not in place, including the risk of dislocation. Pt refuses to have the abductor pillow put on, states I will in a little while .
[2025-04-04 04:00] VITALS: BP 138/81; PULSE 68; RESP 15; TEMP 36.9; O2SAT 92
[2025-04-04] MEDS: sennosides-docusate Tablet 2 TAB PO (05:29)
[2025-04-04] MEDS: metoprolol succinate ER (24 HR) 25 mg Tablet PO (05:29)
[2025-04-04] MEDS: multivitamin therapeutic Tablet 1 TAB PO (05:30)
[2025-04-04 06:09] LABS: Hematocrit 34.7 % (36-47); Hemoglobin 11.20 g/dL (11.27-16.99); Mean Corpuscular HGB Conc 32.3 g/dL (30-55); Mean Corpuscular Hemoglobin 26.7 pg (27-33); Mean Corpuscular Volume 82.8 fl (85-98); Nucleated Red Blood Cells % 0 %; Platelet Count 299 10^3/cmm (157-399); Red Blood Count 4.19 10^6/uL (3.85-5.65); White Blood Count 10.96 10^3/uL (3.29-11.43)
[2025-04-04] MEDS: acetaminophen 1,000 MG/100 ML PIGGYBACK 100 MG IV (07:33)
--- NOTE | 2025-04-04 07:46 | PC.NURSE ---
0235 Pt agreed to let Sonu YI put immobilzer back on.
[2025-04-04 08:00] VITALS: BP 136/69; PULSE 70; RESP 18; TEMP 36.3
[2025-04-04 12:00] VITALS: BP 147/72; PULSE 67; RESP 18; TEMP 36.6; O2SAT 92
--- NOTE | 2025-04-04 12:23 | P.DS_ITS ---
Discharge Providers Date of Admission: 04/03/25 10:45 Date of Discharge: April 04, 2025 Attending Provider at Admission: Hayley Lester MD Attending Provider at Discharge: Hayley Lester MD Primary Care Provider: Jose Wilson MD Diagnoses at Discharge Discharge Diagnosis 1. Primary osteoarthritis of right hip: 2. Avascular necrosis of bone of right hip: 3. S/P total right hip arthroplasty: Reason for Visit Reason for Visit: M16.11 Brief History: This 65-year-old woman initially presented to the office with complaints of severe bilateral hip pain. On October 21, 2024, she underwent left total hip arthroplasty. Today, she presents for a right total hip arthroplasty. Risks and complications were explained to her in the office. Questions were answered and consents were signed. Patient wished to proceed with total hip arthroplasty. On the morning of surgery, she was given further opportunity to ask and have questions answered. Physical Exam Const: COMMON NORMALS: no acute distress, average body habitus, patient oriented x3 and alert GENERAL APPEARANCE: cooperative and comfortable ORIENTATION/CONSCIOUSNESS: Yes awake HENMT: COMMON NORMALS: normocephalic and atraumatic HEAD & SCALP: normocephalic and atraumatic Eye: GENERAL EYE: appearance normal, both eyes and all related structures Chest: COMMONS NORMALS: normal inspection of the chest Resp: COMMON NORMALS: normal respiratory effort EFFORT & INSPECTION: Yes able to speak in complete sentences and Yes symmetric chest movement Extremity: RIGHT LOWER EXTREMITY: Yes hip joint (Dressing dry and intact) Right hip: Yes inspection (No significant erythema or ecchymosis), Yes palpation (Nontender), Yes ROM (Not evaluated) and Yes neurovascular exam (Intact with no evidence of DVT) Neuro: COMMON NORMALS: patient oriented x3 SENSORIUM/ORIENTATION: Yes alert Psych: COMMON NORMALS: mental status grossly normal APPEARANCE: Yes grossly normal ATTITUDE: Yes calm and Yes engaged ATTENTION/CONCENTRATION: Yes attention grossly intact Skin: COMMON NORMALS: no rashes or lesions noted GENERAL SKIN EXAM: no rashes or lesions noted Urinary Catheter Management: Daniel: Cath Placed During This Visit: yes Reason for Continuing Indwelling Catheter: Perioperative Use in Selected Surgeries Urinary Catheter Date of Insertion: 04/03/25 Urinary Catheter Time of Insertion: 07:46 Discharge Data Studies Completed and Pending Completed Studies During Hospitalization Category Date Time Status XR pelvis 1-2V* [id number] Routine Exams 11/20/25 10:48 Completed Radiology Impressions Pelvis X-Ray 04/03/25 10:48 IMPRESSION: New total right hip replacement. Laboratory Results WBC 10.96 10^3/uL (3.29-11.43) 04/04/25 05:42 RBC 4.19 10^6/uL (3.85-5.65) 04/04/25 05:42 Hgb 11.20 g/dL (11.27-16.99) L 04/04/25 05:42 Hct 34.7 % (36-47) L 04/04/25 05:42 MCV 82.8 fl (85-98) L 04/04/25 05:42 MCH 26.7 pg (27-33) L 04/04/25 05:42 MCHC 32.3 g/dL (30-55) 04/04/25 05:42 RDW 14.6 % (12.1-15.1) 04/04/25 05:42 Plt Count 299 10^3/cmm (157-399) 04/04/25 05:42 MPV 10.7 fL (7.4-10.4) H 04/04/25 05:42 Neut % (Auto) 84.9 % 04/04/25 05:42 Lymph % (Auto) 8.0 % 04/04/25 05:42 [place] % (Auto) 5.8 % 04/04/25 05:42 Eos % (Auto) 0.5 % 04/04/25 05:42 Baso % (Auto) 0.4 % 04/04/25 05:42 Neut # (Auto) 9.31 10^3/uL (1.8-7.7) H 04/04/25 05:42 Lymph # (Auto) 0.9 10^3/uL (0.8-4.8) 04/04/25 05:42 [place] # (Auto) 0.6 10^3/uL (0.2-0.9) 04/04/25 05:42 Eos # (Auto) 0.1 10^3/uL (0.0-0.8) 04/04/25 05:42 Baso # (Auto) 0.0 10^3/uL (0.0-0.1) 04/04/25 05:42 Nucleated RBC % (auto) 0 % 04/04/25 05:42 Nucleated RBCs # 0.0 /100WBC 04/04/25 05:42 Vitals Last Vital Signs Temp 97.9 F 04/04/25 12:00 Pulse 67 04/04/25 12:00 Resp 18 04/04/25 12:00 BP 147/72 04/04/25 12:00 Pulse Ox 92 04/04/25 12:00 O2 Del Method Room Air 04/03/25 16:37 Discharge Plan Discharge Patient Disposition: Home Health Service Condition: Stable Prescriptions: New acetaminophen 500 mg Tablet 1,000 mg PO Q8H 15 Days Qty: 90 0RF aspirin 325 mg Tablet,Delayed Release (Dr/Ec) 325 mg PO DAILY 30 Days Qty: 30 0RF celecoxib 200 mg Capsule 200 mg PO 1XD 30 Days Qty: 30 0RF oxycodone 5 mg Tablet 5 mg PO Q4H PRN (Reason: Moderate To Severe Pain) 7 Days Qty: 40 0RF Continued (DME) standard walker See Rx Instructions .Route .MEDSUPPLY Qty: 1 0RF Rx Instructions: As directed. Order 99 days (DME) shower chair See Rx Instructions .Route .MEDSUPPLY Qty: 1 0RF Rx Instructions: As directed fluoxetine 40 mg capsule 40 mg PO DAILY Qty: 90 0RF amlodipine 10 mg tablet 10 mg PO DAILY Qty: 90 1RF lisinopril 40 mg tablet 40 mg PO DAILY Qty: 60 1RF cetirizine 10 mg tablet 10 mg PO DAILY Qty: 30 2RF omeprazole 20 mg capsule,delayed release(DR/EC) 20 mg PO DAILY Rx Instructions: take 1 capsule BY MOUTH EVERY MORNING hydroxyzine HCl 25 mg tablet 25 mg PO DAILY Rx Instructions: TAKE 1 TABLET BY MOUTH TWICE DAILY NEEDED FOR anxiety metoprolol succinate 25 mg tablet extended release 24 hr 25 mg PO DAILY Held diclofenac sodium 75 mg tablet,delayed release (DR/EC) 75 mg PO BID PRN (Reason: pain) Qty: 180 0RF Hold Instructions: Hold until Celebrex completed Discharge Order = DC NOW: Discharge Order (Routine); Ordered 04/04/25 Ordered By: Hayley Lester Referrals: [facility] Home [facility] ([facility]) [Outside] Hayley Lester MD [Physician, Orthopedics] - 04/21/25 2:45 pm Discharge Diet: Usual diet Discharge Activity: Increase activity as tolerated, Limit activity as instructed, Use walker/crutches as instructed and As per PT/OT instructions Patient Instructions: Oxycodone/Acetaminophen (By mouth) (Percocet), Celecoxib (By mouth), Acute Wound Care (DC), Precautions after Total Joint Replacement Surgery (DC), Total Hip Replacement (DC), Opioid Safety, Post Anesthesia Care, Patient Portal & Beatriz Instructions Activity Restrictions/Additional Instructions: Posterior hip precautions. Weight-bear as tolerated. You may shower, but do not submerge your hip in water. If the clear plastic dressing begins to lift up, you may remove it. Otherwise leave it in place until you are seen. Ice to hip as needed. Discharge Attestations Time Spent in Discharge Care*: greater than 30 min Specific Discharge Activities: educating patient, documenting/other paperwork and evaluating patient/reviewing data Quality Metrics Clinical Quality Measures [ No reported AMI, CVA or VTE this stay] Coding Level of Care Code Acute Code for [facility] Fwd Diagnoses Primary osteoarthritis of right hip M16.11 Avascular necrosis of bone of right hip M87.051 S/P total right hip arthroplasty Z96.641
[2025-04-04 12:55] VITALS: BP 147/72; PULSE 67; RESP 18; TEMP 36.6; O2SAT 92
== END 2025-04-04 13:10 | disposition home health service (06) ==
LOC: MEDSURG 10:45
PROVIDERS: Admitting Provider Specialist; PCP Family Medicine; Visit Provider Specialist
PROC: (CPT 27130; principal; 2025-04-03 07:30)
DX: M16.11 Unilateral primary osteoarthritis, right hip (principal); M87.051 Idiopathic aseptic necrosis of right femur; K21.9 Gastro-esophageal reflux disease without esophagitis; I10 Essential (primary) hypertension; F41.9 Anxiety disorder, unspecified
CPT/HCPCS: 27130; 36415; 51702; 72170; 85025; 97110; 97116; 97167; A4216; A4649; C1776; G0378; J0131; J0666; J0690; J2250; J2704; J3010; J3373; J3490; J7030; J9999

== ENCOUNTER → 2025-04-28 15:50 | Outpatient (BNVA) | payer MEDICARE, MEDICAID, SELFPAY | PROVIDERS: PCP Family Medicine; Visit Provider Nurse Practitioner | DX: Z98.890 Other specified postprocedural states (principal); Z96.641 Presence of right artificial hip joint | CPT/HCPCS: 99024 ==